=== PATIENT | female | born 1955 | race Caucasian/White ===

== ENCOUNTER 2020-06-10 10:18 | Inpatient (IN) | payer OTHER, MEDICARE, SELFPAY ==
[2020-06-10] VITALS (16 sets, daily range): BP systolic 108–136; BP diastolic 54–104; PULSE 80–106; RESP 14–20; TEMP 37.2; O2SAT 93–100; BMI 29.8
--- NOTE | ~2020-06-10 | CT_ITS ---
EXAMINATION: CT brain wo con DATE: 06/10/2020 13:57 INDICATION: Syncope. TECHNIQUE: Computed tomography (CT) of the head was performed without intravenous contrast. The mA wa s adjusted according to patient size. Iterative reconstruction technique was employed. The dose-lengt h product was 605.33 mGy-cm. COMPARISON: None FINDINGS: There is no intracranial hemorrhage, acute infarction, or abnormal intracranial mass lesion . The ventricles are normal in size. The orbits are normal. There is mucosal thickening in the parana jade sinuses. The mastoid air cells are normal. There is right frontal scalp soft tissue swelling. IMPRESSION: 1. Normal brain. Reviewed, dictated and finalized at location A. IMPRESSION: 1. Normal brain.
--- NOTE | ~2020-06-10 | CT_ITS ---
EXAMINATION: CT abdomen pelvis w con DATE: 06/10/2020 14:01 INDICATION: Generalized abdominal pain. TECHNIQUE: Computed tomography (CT) of the abdomen and pelvis was performed with 100 mL Omnipaque 350 intravenous contrast. Automated exposure control and iterative reconstruction technique were employe d. The dose-length product was 567.53 mGy-cm. COMPARISON: None. FINDINGS: The visualized portions of the lung bases are clear without pneumonia or pleural effusion. The heart size is normal. No pericardial effusion. There is a small sliding hiatal hernia. The liver is normal. There is cystic wall thickening of the gallbladder fundus, consistent with adenomyomatosis . The spleen is absent. The pancreas, adrenal glands, and right kidney are normal. There are cysts in left kidney measuring up to 8 mm. There is a 6 mm stone in left kidney. There is diverticulosis of t he colon without evidence of diverticulitis. There are no dilated loops of bowel. The appendix is not visualized. There are no pathologically enlarged lymph nodes. There is no free intraperitoneal fluid . There is mild thoracolumbar spondylosis. IMPRESSION: 1. Small sliding hiatal hernia. 2. Nonobstructing left kidney stone. Reviewed, dictated and finalized at location A.
--- NOTE | ~2020-06-10 | XR_ITS ---
EXAMINATION: XR abdomen NG/feed tube insert INDICATION: Nasogastric tube insertion TECHNIQUE: Portable AP KUB-NG at 0910 hours COMPARISON: None available FINDINGS: The nasogastric tube is in the stomach. The bowel gas pattern is normal. There are no dilat ed loops of bowel. The visualized lung bases are clear. IMPRESSION: 1. Nasogastric tube in the stomach. Reviewed, dictated and finalized at location A.
--- NOTE | ~2020-06-10 | XR_ITS ---
EXAMINATION: XR shoulder RT min 2V DATE: 06/10/2020 14:04 INDICATION: Right shoulder pain. TECHNIQUE: 4 views of right shoulder were obtained. COMPARISON: None. FINDINGS: Bone alignment is normal. No fracture. Glenohumeral joint is normal. There is moderate acro mioclavicular joint osteoarthritis. IMPRESSION: 1. Moderate right acromioclavicular joint osteoarthritis. Reviewed, dictated and finalized at location A.
--- NOTE | 2020-06-10 10:34 | ECG_ITS ---
Measurements Intervals Plato Rate: 92 P: 62 NC: 137 QRS: 29 QRSD: 88 T: 30 QT: 341 QTc: 423 Interpretive Statements SINUS RHYTHM BASELINE WANDER- AVF, V3, V6 NORMAL ECG Electronically Signed On 06-10-2020 15:25:09 CDT by Magdaleno Mcneill D.O.
--- NOTE | 2020-06-10 10:58 | ED.GENADULT ---
HPI - General Adult General Chief complaint: Syncope Stated complaint: syncope last night Time Seen by Provider: 06/10/20 10:51 Source: patient Limitations: no limitations History of Present Illness HPI narrative: Patient is a 65 y/o female complaining of passing out earlier this morning between 2:00 AM and 4:00 AM. She states that she woke up to go to the bathroom. While on the commode, she felt dizzy, passed out. She subsequent woke up on the ground. She has some right shoulder pain. She states that she had diarrhea and stool appeared black. She went to golf this morning and felt dizzy, but she did not pass out. She had some vomiting and mild abdominal pain this morning. Related Data Home Medications Medication Instructions Recorded Confirmed amlodipine 5 mg PO DAILY 06/10/20 ergocalciferol (vitamin D2) 50,000 unit PO WEEKLY 06/10/20 omeprazole 20 mg PO DAILY 06/10/20 Allergies Allergy/AdvReac Type Severity Reaction Status Date / Time No Known Allergies Allergy Unverified 06/10/20 10:28 Review of Systems Constitutional: Constitutional: Reports as per HPI, Denies chills, Denies fever(s), Denies headache(s) and Reports weakness Eyes: Eyes: Denies blurry vision ENT: Denies headache(s) and Denies neck pain Cardiovascular: Cardiovascular: Denies chest pain and Denies dyspnea Respiratory: Respiratory: Denies cough and Denies dyspnea Gastrointestinal: Gastrointestinal: Reports abdominal pain, Reports diarrhea, Reports nausea and Reports vomiting Genitourinary: Genitourinary: Denies hematuria and Denies dysuria Musculoskeletal: Musculoskeletal: Denies back pain, Reports arthralgias (right shoulder pain) and Denies neck pain Neurologic: Reports as per HPI, Reports dizziness, Denies headache(s) and Denies weakness [facility] Social History Social History Gender identity (if verbalized by the patient): Female Exam Const: General: no acute distress and well developed Orientation/consciousness: oriented to person, oriented to place, oriented to time and patient oriented x3 HENMT: Head: normocephalic Ears: external ears normal General nose exam: Normal external nose present Eyes: General: appearance normal, both eyes and all related structures Conjunctivae: conjunctivae normal Neck: Neck: normal visual inspection and full ROM Chest: Chest palpation & inspection: normal inspection of the chest and no tenderness Resp: Effort & Inspection: normal respiratory effort Auscultation: clear to auscultation bilaterally Cardio: Rate: regular rate Rhythm: regular rhythm GI: GI Palp: No abdominal tenderness and Yes Soft to palpation Skin: General skin exam: normal color and turgor normal Neuro: General: oriented to person, oriented to place, oriented to time and patient oriented x3 Cognition (Neuro): normal cognition Extrem: General: normal to inspection, full ROM and no pedal edema Psych: Appearance: grossly normal Mental Status: mental status grossly normal Affect: normal affect Course Consultations Consultation #1: Discussed with LEAH Tanner, who agrees to admit to Dr. Reyes. She also recommends GI consult. Date: 06/10/20 Time: 15:05 Consultation #2: Discussed with Dr. Laws, who agrees to consult. Date: 06/10/20 Time: 15:08 Vital Signs Vital signs: Vital Signs Temperature 37.2 C 06/10/20 10:23 Pulse Rate 89 06/10/20 10:23 Respiratory Rate 20 06/10/20 10:23 Blood Pressure 125/75 06/10/20 10:23 Pulse Oximetry 99 06/10/20 10:23 Temperature 37.2 C 06/10/20 10:23 Pulse Rate 82 06/10/20 15:35 Respiratory Rate 20 06/10/20 15:35 Blood Pressure 129/73 06/10/20 15:35 Pulse Oximetry 98 06/10/20 15:35 Medical Decision Making Vital Signs Vital Signs: Vital Signs Temperature 37.2 C 06/10/20 10:23 Pulse Rate 89 06/10/20 10:23 Respiratory Rate 06/10/20 10:23 Blood Pressure 125/75 06/10/20 10:
[2020-06-10] MEDS: SODIUM CHLORIDE 0.9% IV 1,000 ML 999 ML IV CONT (11:05)
[2020-06-10 11:09] LABS: Basophils Absolute Auto 0.1 K/mm3 (0.0-0.1); Basophils Percent Auto 0.7 % (0.2-1.2); Eosinophils Percent Auto 0.2 % (0-4.4); Hematocrit 34.1 % (37.0-47.0); Hemoglobin 11.9 g/dL (12.0-15.0); Immature Granulocyte Absolute 0.06 K/mm3 (0.00-0.031); Immature Granulocyte Percent A 0.5 % (0-0.5); Lymphocytes Absolute Auto 1.39 K/mm3 (0.9-3.2); Mean Corpuscular HGB Conc 34.9 g/dl (32-36); Mean Corpuscular Hemoglobin 33.6 pg (26-34); Mean Corpuscular Volume 96.3 fl (80-100); Mean Platelet Volume 11.6 fl (7.4-10.4); Monocytes Absolute Auto 0.5 K/mm3 (0.1-0.6); Monocytes Percent Auto 4.1 % (2.6-8.5); Neutrophils Absolute Auto 10.6 K/mm3 (1.3-6.7); Neutrophils Percent Auto 83.5 % (45.5-73.1); Platelet Count Result 318 k/mm3 (150-375); Red Blood Count 3.54 M/mm3 (4.2-5.4); Red Cell Distribution Width 11.6 % (11.5-14.5); White Blood Count 12.7 K/mm3 (4.5-10.0)
[2020-06-10 11:22] LABS: Anion Gap 8 mmol/L (8-16); Blood Urea Nitrogen 24 mg/dL (7-17); Calcium 9.2 mg/dL (8.4-10.2); Carbon Dioxide 22 mmol/L (22-30); Chloride 108 mmol/L (98-107); Estimated CRCL calculation 57 ml/min; Estimated Glomerular Filt Rate > 60; Glucose 141 mg/dL (65-105); Potassium 4.5 mmol/L (3.4-5.0); Sodium 138 mmol/L (137-145)
[2020-06-10 14:28] LABS: Hematocrit 29.9 % (37.0-47.0); Hemoglobin 10.5 g/dL (12.0-15.0)
[2020-06-10] MEDS: SODIUM CHLORIDE 0.9% IV 1,000 ML 125 ML IV CONT (18:28)
--- NOTE | 2020-06-10 18:42 | ADMGEN ---
This patient, Melissa Ambriz, was admitted to Medical Room 252-. Patient/family oriented to hospital policies and general routines including ID bracelet, bed and alarms, visiting hours, pain management, procedures, bathroom and other care routines, personal items, smoking policy, room service/diet, and visiting hours. Valuables list has been completed. Information on how to activate the Rapid Response Team has been discussed. Patient/Family are encouraged to report perceived risks to care and to ask questions if they do not understand what they are told or what they should do.
--- NOTE | 2020-06-10 23:23 | PM.IMHP ---
H&P: HPI History of Present Illness Date/Time: 06/10/20 23:23 Chief complaint: syncope/gi bleed Narrative: Melissa Ambriz is a 65 year old female Who has a history of hypertension. The patient recently started taking an aspirin probably last week and half ago. She said her take 1 and she just decided she needed take 1 as well. She has a history of having a spleen ectomy which was 5 years old. due to spherocytosis. The patient has had esophageal strictures in the past and had to have some dilated the past. She has seen a doctor rachel at [place] in the past. She is a nondrinker. She may have a drink once a month but does not usually drink. The patient stated that she passed out early this morning between 2 and 4:00 a.m.. She stated that she woke up to go to the bathroom. She sat on the commode felt dizzy and passed out found herself on the floor. When she got up felt like she had have a diarrhea stool. So she got up and sat on the toilet had a dark stool. She only just started taking the aspirin is not on any and other anticoagulation. She went to go off this morning and felt dizzy but did pass out. When I came into the room she is vomiting bright red blood and had a dark stool. She does have a history of having gastroesophageal reflux disease and has been taking omeprazole. She also has osteoporosis. She takes shot Prolia every 6 months. And is due for an in about 2 weeks. She typically has high blood pressure but it was low today. GI on-call was consulted. She was started on IV fluids. Her 1st H&H was 11.9 and 34.1 and the repeat was 10.5 and 29.9. I did order for her to have a Protonix drip and to have a Q 6 hours H&H. I ordered type and screen as well. I spent approximately 45 minutes with the patient. CT of the abdomen was read as small sliding hiatal hernia. Nonobstructing left kidney stone. Date of service is 06/10/2020 she is pale but denies any dizziness at this time she just feels nauseated. Review of Systems Review of Systems: All systems reviewed & are unremarkable except as noted in HPI and below Constitutional: Constitutional: Reports as per HPI and Reports no additional constitutional complaints Eyes: Eyes: Reports as per HPI and Reports no additional eye complaints ENT: Reports system reviewed and no additional complaints, except as documented and Reports Normal hearing present Cardiovascular: Cardiovascular: Reports no additional cardiovascular complaints Respiratory: Respiratory: Reports no additional respiratory complaints and Reports no additional respiratory complaints Gastrointestinal: Gastrointestinal: Reports as per HPI and Reports no additional gastrointestinal complaints Musculoskeletal: Musculoskeletal: Reports no additional musculoskeletal complaints Integumentary/Breasts: Skin/Breast: Reports system reviewed and no additional complaints, except as docu and Reports as per HPI Neurologic: Reports system reviewed and no additional complaints, except as documented, Reports as per HPI and Reports Normal hearing present Psychiatric: Psychiatric: Reports no additional psychiatric complaints and Reports as per HPI Endocrine: Endocrine: Reports no additional endocrine complaints Hematologic/Lymphatic: Hematologic/Lymphatic: Reports no additional hematologic/lymphatic complaints Allergic/Immunologic: Allergic/Immunologic: Reports no additional allergic/immunologic complaints [facility] Past Medical History Medical History (Updated 06/10/20 @ 23:31 by Flores Fischer NP) Esophageal stricture GERD with stricture History of esophageal dilatation Hypertension Osteoporosis 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
[2020-06-11] VITALS (27 sets, daily range): BP systolic 101–123; BP diastolic 52–81; PULSE 65–106; RESP 13–24; TEMP 36.3–37.2; O2SAT 97–100
[2020-06-11 00:07] LABS: Hematocrit 23.2 % (37.0-47.0)
[2020-06-11 02:07] LABS: IFOB Positive Control Positive; Immunochemical Fecal Occult Bl Positive (N)
[2020-06-11] MEDS: SODIUM CHLORIDE 0.9% IV 250 ML 30 ML IV CONT (02:09)
[2020-06-11] MEDS: SODIUM CHLORIDE 0.9% IV 1,000 ML 125 ML IV CONT (02:22)
[2020-06-11 06:30] LABS: Hemoglobin 7.4 g/dL (12.0-15.0)
--- NOTE | 2020-06-11 06:43 | PM.EVENT ---
Event Note Event Note Event Note: Rapid Response Note This is a 65 year old female who is being treated for an upper GI bleed who had a drop in her blood pressure and began to have bright red vomiting. The patient was transfused 1 unit of PRBC overnight and her H/H actually dropped afterwards. Nursing staff has called GI who has recommended that the patient be transferred to ICU and NG tube be placed. We will transfer another unit of pRBCs. I have consulted our Viscosity Worker, Dr. Valentine for same. Continue GI recommendations.
[2020-06-11 06:46] LABS: Alanine Aminotransferase 11 U/L (4-35); Albumin Level 2.3 g/dL (3.5-5.1); Alkaline Phosphatase 39 U/L (38-126); Anion Gap 1 mmol/L (8-16); Aspartate Amino Transferase 13 U/L (14-36); Bilirubin,Total 0.4 mg/dL (0.2-1.3); Blood Urea Nitrogen 44 mg/dL (7-17); Calcium 7.1 mg/dL (8.4-10.2); Carbon Dioxide 23 mmol/L (22-30); Chloride 114 mmol/L (98-107); Estimated CRCL calculation 69 ml/min; Estimated Glomerular Filt Rate > 60; Glucose 125 mg/dL (65-105); Potassium 3.9 mmol/L (3.4-5.0); Sodium 138 mmol/L (137-145)
--- NOTE | 2020-06-11 07:07 | PCDIET ---
Pt had 3 episodes of blood emesis. 2 of the episodes were this morning, 06/11, at approximately 0600. Approx 700ml of bloody emesis. Dr. Jase Anderson was called twice to update him of her condition and get further orders. The provider wanted pt trasferred to ICU, NG tube inserted and more blood to be administered. Pt became pale and her O2 sats dropped in the 80s. A rapid response call was made and Dr Salinsa came to the floor to assess the pt and place orders. Pt was transferred to ICU Rm 8. Her Omer was called and made aware of the pt's condition
--- NOTE | 2020-06-11 07:32 | PC.NURSE ---
Rapid response called at 0630. Dr Salinas and the response team came to the room. Report was given to MAURICIO Chappell. Pt was transferred to ICU 8. Belongings and medications were sent. A copy of the sbar and report were given to MAURICIO Narayanan. Pt's was called.
--- NOTE | 2020-06-11 07:57 | WPDGICN ---
Assessment and Plan Assessment and plan (1) GI bleed: Qualifiers: GI bleed type/associated pathology: melena Qualified Code(s): K92.1 - Melena Code(s): K92.2 - Gastrointestinal hemorrhage, unspecified Status: Acute Assessment and Plan: patient was moved to ICU given active hematemesis, getting blood transfusion NPO status, on iv protonix drip will proceed with urgent EGD probably ulcer, esophagitis (h/o stricture), etc (2) Melena: Code(s): K92.1 - Melena Status: Acute Assessment and Plan: upper gib, EGD today discontinue aspirin (3) Acute blood loss anemia: Code(s): D62 - Acute posthemorrhagic anemia Status: Acute Assessment and Plan: she is getting her second unit now, continue to monitor and check h/h (4) Syncope: Qualifiers: Syncope type: unspecified Qualified Code(s): R55 - Syncope and collapse Code(s): R55 - Syncope and collapse Status: Acute Assessment and Plan: from GIB (5) GERD with stricture: Code(s): K21.9 - Gastro-esophageal reflux disease without esophagitis; K22.2 - Esophageal obstruction Status: Acute GI Consult Note Consult date/time: 06/11/20 07:57 Reason for consult: hematemesis, melena HPI: Melissa Ambriz is a 65 year old female with history of splenectomy as a child because spherocytosis, HTN and esophageal stricture dilated x2 last year in [facility] on omeprazole (also she had colonoscopy) here with new onset of dark tarry stool with diarrhea the night before admission, in fact she passed out after using the toilet that night. Next day she went golf but fell dizzy and tired, had nausea and vomiting with dark loose stool and came to ER, admitted to floor yesterday but then started vomiting coffee ground with blood. This morning she was transferred to ICU, she is getting her second unit of PRBC. She started using aspirin about week and half ago, denies using nsaid's or history of GIB. No etoh use. Denies dysphagia. CT scan showed small hiatal hernia. Started on protonix drip and NGT placed. Hb on admission 11.9, most recent one 7.4, BUN 44, normal platelets Review of Systems Constitutional: Constitutional: Reports fatigue, Denies headache(s) and Reports weakness Eyes: Eyes: Denies blurry vision ENT: Reports Normal hearing present, Denies headache(s) and Denies neck pain Cardiovascular: Cardiovascular: Denies chest pain and Denies dyspnea Respiratory: Respiratory: Reports dyspnea on exertion Gastrointestinal: Gastrointestinal: Reports melena, Reports nausea, Reports vomiting and Reports hematemesis Genitourinary: Genitourinary: Denies dysuria Musculoskeletal: Musculoskeletal: Denies neck pain Integumentary/Breasts: Skin/Breast: Denies dry skin Neurologic: Reports Normal hearing present, Reports dizziness and Reports syncope Psychiatric: Psychiatric: Denies anxiety Endocrine: Endocrine: Denies change in body appearance Hematologic/Lymphatic: Hematologic/Lymphatic: Denies easy bleeding Allergic/Immunologic: Allergic/Immunologic: Denies urticaria PMFSH Past Medical History Medical History (Updated 06/11/20 @ 08:06 by Umang Dominguez MD) Acute blood loss anemia Esophageal stricture GERD with stricture History of esophageal dilatation Hypertension Melena Osteoporosis 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
--- NOTE | 2020-06-11 08:08 | WPDANESEPPF ---
Anes - Initial Pre Proc Eval Procedure: Operation Date: 06/11/20 12:00 Proposed Procedures p Esophagogastroduodenoscopy - Umang Dominguez MD Date/Time: 06/11/20 08:08 Surgeon: Kristal Reyes MD Pre Op Diagnosis: syncope/gi bleed Patient Data Age: 65 Gender: F Height: 1.63 m Weight: 78.8 kg Last Vital Signs Temp 37.1 C 06/11/20 07:19 Pulse 102 H 06/11/20 07:39 Resp 22 H 06/11/20 07:39 BP 104/81 06/11/20 07:39 Pulse Ox 100 06/11/20 07:39 Allergies Allergy/AdvReac Type Severity Reaction Status Date / Time No Known Allergies Allergy Verified 06/10/20 18:31 Home Medications Medication Instructions Recorded Confirmed Type amlodipine 5 mg PO DAILY 06/10/20 06/10/20 History calcium carbonate [Antacid 750 mg PO Q2-3H PRN 06/10/20 06/10/20 History (calcium carbonate)] denosumab [Prolia] 60 mg SUBCUT [id number] 06/10/20 06/10/20 History ergocalciferol (vitamin D2) 50,000 unit PO WEEKLY 06/10/20 06/10/20 History melatonin 10 mg PO HS 06/10/20 06/10/20 History Laboratory Tests 06/10/20 06/10/20 06/10/20 10:38 10:38 14:13 WBC 12.7 K/mm3 H K/mm3 (4.5-10.0) RBC 3.54 M/mm3 L M/mm3 (4.2-5.4) Hgb 11.9 g/dL L g/dL 10.5 g/dL L g/dL (12.0-15.0) (12.0-15.0) Hct 34.1 % L % 29.9 % L % (37.0-47.0) (37.0-47.0) MCV 96.3 fl fl (80-100) MCH 33.6 pg pg (26-34) MCHC 34.9 g/dl g/dl (32-36) RDW 11.6 % % (11.5-14.5) Plt Count 318 k/mm3 k/mm3 (150-375) MPV 11.6 fl H fl (7.4-10.4) Immature Gran % (Auto) 0.5 % % (0-0.5) Neut % (Auto) 83.5 % H % (45.5-73.1) Lymph % (Auto) 11.0 % L % (18.3-44.2) Bonner % (Auto) 4.1 % % (2.6-8.5) Eos % (Auto) 0.2 % % (0-4.4) Baso % (Auto) 0.7 % % (0.2-1.2) Lymph # (Auto) 1.39 K/mm3 K/mm3 (0.9-3.2) Bonner # (Auto) 0.5 K/mm3 K/mm3 (0.1-0.6) Eos # (Auto) 0.0 K/mm3 K/mm3 (0-0.3) Baso # (Auto) 0.1 K/mm3 K/mm3 (0.0-0.1) Abs Immat Gran (auto) 0.06 K/mm3 H K/mm3 (0.00-0.031) Absolute Neuts (auto) 10.6 K/mm3 H K/mm3 (1.3-6.7) Absolute Nucleated RBC 0.0 K/mm3 K/mm3 (0.0-0.012) Nucleated RBC % 0.0 % % (0.0-0.2) Sodium 138 mmol/L mmol/L (137-145) Potassium 4.5 mmol/L mmol/L (3.4-5.0) Chloride 108 mmol/L H mmol/L (98-107) Carbon Dioxide 22 mmol/L mmol/L (22-30) Anion Gap 8 mmol/L mmol/L (8-16) BUN 24 mg/dL H mg/dL (7-17) Creatinine 0.80 mg/dL mg/dL (0.7-1.0) Estim Creat Clear Calc 57 ml/min ml/min Estimated GFR > 60 (59 - ) Glucose 141 mg/dL H mg/dL (65-105) Calcium 9.2 mg/dL mg/dL (8.4-10.2) Ferritin Total Bilirubin AST ALT Alkaline Phosphatase Total Protein Albumin TSH (Reflex) Stl Occult Blood (IFOB) Blood Type Antibody Screen Crossmatch 08/16/20 08/16/20 08/16/20 23:21 23:38 23:38 WBC RBC Hgb 8.0 g/dL L g/dL (12.0-15.0) Hct 23.2 % L % (37.0-47.0) MCV MCH MCHC RDW Plt Count MPV Immature Gran % (Auto) Neut % (Auto) Lymph % (Auto) Bonner % (Auto) Eos % (Auto) Baso % (Auto) Lymph # (Auto) Bonner # (Auto) Eos # (Auto) Baso # (Auto) Abs Immat Gran (auto) Absolute Neuts (auto) Absolute Nucleated RBC Nucleated RBC % Sodium Potassium Chloride Carbon Dioxide Anion Gap BUN
--- NOTE | 2020-06-11 09:00 | WPDCNINT ---
Assessment and Plan Assessment and plan (1) GI bleed: Qualifiers: GI bleed type/associated pathology: melena Qualified Code(s): K92.1 - Melena Code(s): K92.2 - Gastrointestinal hemorrhage, unspecified Status: Acute Assessment and Plan: patient presented the ED with melena, syncope - dropped hemoglobin overnight, with active hematemesis. Patient was transfuse 1 unit of packed RBCs last night, this morning her hemoglobin dropped to 7.4 and is being transfused as a right this note. Patient will receive a total of 2 units of packed RBCs this morning ( which will be a total of 3 units of packed RBCs since admission) - patient on Protonix infusion - has been made NPO - appreciate GI evaluation, patient for urgent EGD today (2) Acute blood loss anemia: Code(s): D62 - Acute posthemorrhagic anemia Status: Acute Assessment and Plan: acute anemia likely secondary to post hemorrhagic GI bleed - continue to monitor H&H transfuse as required (3) Syncope: Qualifiers: Syncope type: unspecified Qualified Code(s): R55 - Syncope and collapse Code(s): R55 - Syncope and collapse Status: Acute Assessment and Plan: syncope likely related to GI bleed secondary to possible hypotension, hypovolemia - patient has been adequately fluid-resuscitated and has been receiving blood transfusions - will continue to monitor hemodynamics (4) Hypertension: Code(s): I10 - Essential (primary) hypertension Status: Chronic Assessment and Plan: patient with history of essential hypertension, will hold all antihypertensives (5) GERD with stricture: Code(s): K21.9 - Gastro-esophageal reflux disease without esophagitis; K22.2 - Esophageal obstruction Status: Acute Assessment and Plan: history of GERD with esophageal stricture, dilation x2 done at [place] in 2019 - GI following (6) DVT prophylaxis: Code(s): Z29.9 - Encounter for prophylactic measures, unspecified Status: Acute Assessment and Plan: SCDs Additional Plan discussed with patient and updated her with her condition and plan of care. I answered all questions code status: Full code critical care time spent: 44 minutes discussed with GI Due to a high probability of clinically significant, life threatening deterioration, the patient required my highest level of preparedness to intervene emergently and I personally spent this critical care time directly and personally managing the patient. This critical care time included obtaining a history; examining the patient; pulse oximetry; ordering and review of studies; arranging urgent treatment with development of a management plan; evaluation of patient's response to treatment; frequent reassessment; and discussions with other providers. It was exclusive of separately billable procedures and treating other patients and teaching time. Please see Assessment and Plan section and the rest of the note for further information on patient assessment and treatment Contestant Coordinator Consult Note Consult date: 06/11/20 Time Seen: 06:57 Reason for consult: GI bleed, anemia HPI: Melissa Ambriz is a 65 year old female with significant past medical history of esophageal stricture requiring dilatation x2 done in 2019 [place], [place], GERD, essential hypertension, spherocytosis status post splenectomy at age of 4, osteoporosis presented the ED with complains of melena, syncopal episode on 06/10/2020. Dizzy, tired, had nausea and vomiting along with doubt loose stool. Initially was admitted to the medical floor where she started having coffee-ground emesis and hematemesis and was transferred to the ICU early this morning. Patient also dropped her hemoglobin from 11.9 on admission to 7.4 this morning, patient has been transfused 1 unit of packed RBCs on 816 lb transfuse 2 units of packed RBC here in the ICU. GI has eval
[2020-06-11] MEDS: LACTATED RINGERS 1,000 ML 150 ML IV CONT (11:56)
--- NOTE | 2020-06-11 11:57 | SUR.PREOP ---
PT ARRIVED TO GI LAB VIA STRETCHER SPOUSE AT BEDSIDE, PROCEEDED WITH ORDERS
[2020-06-11] MEDS: EPINEPHrine INJ 1 MG/10 ML SYRINGE XX (12:47)
--- NOTE | 2020-06-11 14:20 | PM.IMPN ---
Progress Note: A&P Assessment and Plan (1) GI bleed: Qualifiers: GI bleed type/associated pathology: melena Qualified Code(s): K92.1 - Melena Code(s): K92.2 - Gastrointestinal hemorrhage, unspecified Status: Acute Assessment and Plan: as above EGD revealed gastric fundus ulcer with spontaneous bleeding vessel on probing treated with appy injection, cautery, and clipping. hemoglobin 7.4 this a.m. before 3rd unit of blood given (2) Syncope: Qualifiers: Syncope type: unspecified Qualified Code(s): R55 - Syncope and collapse Code(s): R55 - Syncope and collapse Status: Acute Assessment and Plan: secondary to drop in blood pressure and her GI bleed. continue to monitor (3) Hypertension: Code(s): I10 - Essential (primary) hypertension Status: Chronic Assessment and Plan: blood pressure low due to bleeding and amlodipine on hold. (4) Osteoporosis: Code(s): M81.0 - Age-related osteoporosis without current pathological fracture Status: Chronic Assessment and Plan: She takes Prolia injections every 6 months and is due for approximately 2 weeks from now. (5) Acute blood loss anemia: Code(s): D62 - Acute posthemorrhagic anemia Status: Acute Assessment and Plan: secondary to bleeding ulcer. Has received 3 units of packed cells to date and repeat hemoglobin pending (6) DVT prophylaxis: Code(s): Z29.9 - Encounter for prophylactic measures, unspecified Status: Acute Assessment and Plan: mechanical with GI bleeding Subjective Date/time seen: 06/11/20 14:20 Interval history: date of visit 06/11. 65-year-old hypertensive female admitted after syncopal episode, melanotic stool, and hematemesis. EGD this a.m. revealed ulcer in gastric fundus with visible vessel that blood wound probed and was treated with epi injection, cauterization, and clipping. No abdominal pain or nausea Exam Narrative: Exam Narrative: blood pressure 110/72 pulse is 82 saturating 97% on room air afebrile pupils equal reactive to light sclera anicteric lungs clear CV regular rate rhythm abdomen soft nontender bowel sounds normal active extremities without edema distal pulses are 2+ neuro alert pleasant cooperative no focal deficits Objective Data Vital Signs Vital Signs: Vital Signs - 24 hr 06/10/20 15:35 06/10/20 17:35 06/10/20 17:53 Temperature 37.2 C Pulse Rate 82 100 89 Respiratory Rate 20 16 Blood Pressure 129/73 136/77 Pulse Oximetry 98 99 06/10/20 20:00 06/10/20 22:00 06/10/20 23:10 Temperature 37.2 C Pulse Rate 92 98 93 Respiratory Rate 16 14 Blood Pressure 114/54 L 108/71 Pulse Oximetry 98 97 06/11/20 00:00 06/11/20 02:14 06/11/20 02:15 Temperature 36.6 C 36.6 C Pulse Rate 98 104 H 104 H Respiratory Rate 16 16 Blood Pressure 121/54 L 121/54 L Pulse Oximetry 98 98 06/11/20 02:30 06/11/20 03:30 06/11/20 04:00 Temperature 36.7 C 37.1 C Pulse Rate 99 99 93 Respiratory Rate 16 16 Blood Pressure 118/58 L 112/63 Pulse Oximetry 98 97 06/11/20 04:30 06/11/20 05:27 06/11/20 07:01 Temperature 36.3 C L 37.1 C 36.9 C Pulse Rate 106 H 99 100 Respiratory Rate 16 16 14 Blood Pressure 109/61 112/63 111/65 Pulse Oximetry 98 97 99 06/11/20 07:19 06/11/20 07:39 06/11/20 08:00 Temperature 37.1 C Pulse Rate 92 102 H 100 Respiratory Rate 22 H 22 H 21 H Blood Pressure 107/62 104/81 Pulse Oximetry 100 100 100 06/11/20 08:19 06/11/20 09:19 06/11/20 10:44 Temperature 37.2 C 37.1 C 37.2 C Pulse Rate 65 99 95 Respiratory Rate 21 H 19 16 Blood Pressure 113/66 105/61 113/64 Pulse Oximetry 100 100 100 06/11/20 10:54 06/11/20 11:11 06/11/20 11:45 Temperature 37.2 C 37.2 C 36.9 C Pulse Rate 90 95 97 Respiratory Rate 13 20 20 Blood Pressure 121/71 117/69 115/71 Pulse Oximetry 100 100 100 06/11/20 11:56 06/11/20 12:49 06/11/20 12:59 [place]
[2020-06-11 14:44] LABS: Hemoglobin 10.7 g/dL (12.0-15.0)
[2020-06-11 21:06] LABS: Hematocrit 25.5 % (37.0-47.0)
[2020-06-12] VITALS (11 sets, daily range): BP systolic 104–117; BP diastolic 49–71; PULSE 81–99; RESP 16–24; TEMP 36.6–37.2; O2SAT 97–99
[2020-06-12 04:44] LABS: Basophils Absolute Auto 0.1 K/mm3 (0.0-0.1); Basophils Percent Auto 0.6 % (0.2-1.2); Eosinophils Absolute Auto 0.1 K/mm3 (0-0.3); Eosinophils Percent Auto 0.7 % (0-4.4); Hematocrit 27.4 % (37.0-47.0); Hemoglobin 9.5 g/dL (12.0-15.0); Immature Granulocyte Absolute 0.08 K/mm3 (0.00-0.031); Immature Granulocyte Percent A 0.5 % (0-0.5); Lymphocytes Absolute Auto 3.22 K/mm3 (0.9-3.2); Lymphocytes Percent Auto 20.3 % (18.3-44.2); Mean Corpuscular HGB Conc 34.7 g/dl (32-36); Mean Corpuscular Hemoglobin 31.5 pg (26-34); Mean Corpuscular Volume 90.7 fl (80-100); Mean Platelet Volume 10.9 fl (7.4-10.4); Monocytes Absolute Auto 1.1 K/mm3 (0.1-0.6); Monocytes Percent Auto 6.7 % (2.6-8.5); Neutrophils Absolute Auto 11.3 K/mm3 (1.3-6.7); Neutrophils Percent Auto 71.2 % (45.5-73.1); Platelet Count Result 191 k/mm3 (150-375); Red Blood Count 3.02 M/mm3 (4.2-5.4); White Blood Count 15.9 K/mm3 (4.5-10.0)
[2020-06-12 05:35] LABS: Anion Gap 4 mmol/L (8-16); Blood Urea Nitrogen 15 mg/dL (7-17); Carbon Dioxide 25 mmol/L (22-30); Chloride 109 mmol/L (98-107); Estimated CRCL calculation 61 ml/min; Estimated Glomerular Filt Rate > 60; Glucose 107 mg/dL (65-105); Magnesium 1.9 mg/dL (1.6-2.3); Phosphorus 2.8 mg/dL (2.5-4.5); Potassium 3.6 mmol/L (3.4-5.0); Sodium 138 mmol/L (137-145)
--- NOTE | 2020-06-12 07:48 | P.PNAN_ITS ---
Anes - Prog Note Post-Op Date/Time: 06/12/20 07:48 Cardiovascular status: normal Respiratory status: normal Airway patency: baseline Mental status: baseline Post-Op hydration status: normal Vital Signs: Last Vital Signs Temp 36.6 C 06/12/20 06:00 Pulse 84 06/12/20 06:00 Resp 17 06/12/20 06:00 BP 104/50 L 06/12/20 06:00 Pulse Ox 99 06/12/20 06:00 I/O: Intake & Output 06/11/20 06/11/20 06/12/20 15:59 23:59 07:59 Intake Total 2200 990 550 Output Total 600 1000 Balance 2200 390 -450 Laboratory Tests 06/12/20 04:32 06/12/20 04:32 06/10/20 06/11/20 06/11/20 23:38 06:18 14:15 WBC RBC Hgb 10.7 L D Hct 31.0 L MCV MCH MCHC RDW Plt Count MPV Immature Gran % (Auto) Neut % (Auto) Lymph % (Auto) Ransom % (Auto) Eos % (Auto) Baso % (Auto) Lymph # (Auto) Ransom # (Auto) Eos # (Auto) Baso # (Auto) Abs Immat Gran (auto) Absolute Neuts (auto) Absolute Nucleated RBC Nucleated RBC % Sodium Potassium Chloride Carbon Dioxide Anion Gap BUN Creatinine Estim Creat Clear Calc Estimated GFR Glucose Calcium Phosphorus Magnesium Ferritin 126.00 Blood Type O Positive Antibody Screen Negative Crossmatch See Detail 06/11/20 06/12/20 06/12/20 20:21 04:32 04:32 WBC 15.9 H RBC 3.02 L Hgb 9.0 L 9.5 L Hct 25.5 L 27.4 L MCV 90.7 D MCH 31.5 D MCHC 34.7 RDW 15.0 H Plt Count 191 MPV 10.9 H Immature Gran % (Auto) 0.5 Neut % (Auto) 71.2 Lymph % (Auto) 20.3 Ransom % (Auto) 6.7 Eos % (Auto) 0.7 Baso % (Auto) 0.6 Lymph # (Auto) 3.22 H Ransom # (Auto) 1.1 H Eos # (Auto) 0.1 Baso # (Auto) 0.1 Abs Immat Gran (auto) 0.08 H Absolute Neuts (auto) 11.3 H Absolute Nucleated RBC 0.0 Nucleated RBC % 0.0 Sodium 138 Potassium 3.6 Chloride 109 H Carbon Dioxide 25 Anion Gap 4 L BUN 15 D Creatinine 0.80 Estim Creat Clear Calc 61 Estimated GFR > 60 Glucose 107 H Calcium 8.0 L Phosphorus 2.8 Magnesium 1.9 Ferritin Blood Type Antibody Screen Crossmatch Post-procedural complaints: none Patient Feedback: Patient satisfied with anesthetic care.
--- NOTE | 2020-06-12 09:59 | WPDGIPROGNO ---
Progress Note: A&P Assessment and Plan (1) Gastric ulcer: Code(s): K25.9 - Gastric ulcer, unspecified as acute or chronic, without hemorrhage or perforation Status: Acute Assessment and Plan: active bleeding gastric ulcer with visible vessel treated endoscopically yesterday. Hb stable after blood transfusion and she is doing much better ok to switch now to protonix bid pending bx (if h pylori then will need treatment) she will need also EGD in 3 months to reassess again (2) Melena: Code(s): K92.1 - Melena Status: Acute Assessment and Plan: no more bleeding (3) Acute blood loss anemia: Code(s): D62 - Acute posthemorrhagic anemia Status: Acute (4) Syncope: Qualifiers: Syncope type: unspecified Qualified Code(s): R55 - Syncope and collapse Code(s): R55 - Syncope and collapse Status: Acute Assessment and Plan: on presentation, she is hemodynamically stable now ok to move to floor Subjective Date/time seen: 06/12/20 09:59 Interval history: no more nausea or vomiting, she is feeling much better now. Review of Systems Review of Systems: All systems reviewed & are unremarkable except as noted in HPI and below Exam Const: General: comfortable and no acute distress Other: she is resting comfortable, good spirits HENMT: General nose exam: Normal nares present Eyes: General: appearance normal, both eyes and all related structures Neck: Neck: no JVD Resp: Auscultation: clear to auscultation bilaterally Cardio: Rate: regular rate Rhythm: regular rhythm GI: Inspection: non-distended GI Palp: Yes Soft to palpation Skin: General skin exam: normal color Neuro: General: gait normal Speech: normal speech Extrem: General: normal to inspection Psych: Mental Status: mental status grossly normal Objective Data Vital Signs Vital Signs: Vital Signs - 24 hr 06/11/20 10:44 06/11/20 10:54 06/11/20 11:11 Temperature 99.0 F 99.0 F 98.9 F Pulse Rate 95 90 95 Respiratory Rate 16 13 20 Blood Pressure 113/64 121/71 117/69 Pulse Oximetry 100 100 100 06/11/20 11:45 06/11/20 11:56 06/11/20 12:49 Temperature 98.4 F 98.4 F 98.6 F Pulse Rate 97 97 99 Respiratory Rate 20 20 23 H Blood Pressure 115/71 115/71 116/52 L Pulse Oximetry 100 100 100 06/11/20 12:59 06/11/20 13:09 06/11/20 14:00 Temperature 98.6 F 98.9 F Pulse Rate 85 86 83 Respiratory Rate 24 H 19 23 H Blood Pressure 123/59 L 105/69 111/72 Pulse Oximetry 98 100 97 06/11/20 16:00 06/11/20 19:49 06/11/20 19:51 Temperature 98.8 F Pulse Rate 95 97 97 Respiratory Rate 18 18 Blood Pressure 122/61 Pulse Oximetry 99 99 06/11/20 20:00 06/12/20 00:00 06/12/20 04:00 Temperature 97.8 F 97.8 F 98.1 F Pulse Rate 97 99 87 Respiratory Rate 16 16 18 Blood Pressure 117/54 L 117/54 L 110/49 L Pulse Oximetry 97 99 99 06/12/20 06:00 06/12/20 08:00 Temperature 97.9 F 98.1 F Pulse Rate 84 82 Respiratory Rate 17 16 Blood Pressure 104/50 L 110/54 L Pulse Oximetry 99 99 Intake/Output Intake/Output: Intake & Output 06/09/20 06/10/20 06/11/20 06/12/20 23:59 23:59 23:59 23:59 Intake Total 1000 4907 1350 Output Total 150 1800 1000 Balance 850 3107 350 Meds/Results Medications: Active Medications Generic Name Dose Route Start Last Admin Trade Name Freq PRN Reason Stop Dose Admin Pantoprazole Sodium 80 mg/ 500 mls @ 50 mls/hr 06/10/20 23:20 06/11/20 22:53 Dextrose IV CONT 50 mls/hr .Q10H CHRISTIANO Administration Radiology Results: ITS Impressions Head CT 06/10/20 14:00 IMPRESSION: 1. Normal brain. Shoulder X-Ray 06/10/20 14:07 IMPRESSION: 1. Moderate right acromioclavicular joint osteoarthritis. Abdomen/Pelvis CT 06/10/20 14:08 IMPRESSION: 1. Small sliding hiatal hernia. 2. Nonobstructing left kidney stone. Abdomen X-Ray 06/11/20 09:32 IMPRESSION: 1. Nasogastric tube in the stomach. Labs La
--- NOTE | 2020-06-12 11:12 | WPDINTPN ---
Progress Note: A&P Assessment and Plan (1) GI bleed: Qualifiers: GI bleed type/associated pathology: melena Qualified Code(s): K92.1 - Melena Code(s): K92.2 - Gastrointestinal hemorrhage, unspecified Status: Acute Assessment and Plan: patient presented the ED with melena, syncope, active hematemesis - 06/11/2020: EGD showed a hiatal hernia followed at the GE junction, nonobstructive Schatzki's ring at GE junction. Will deep ulcer measuring 10 mm visualize the fundus of the stomach with bleeding noted which was cauterized, injected with epinephrine and 5 full resolution clips were placed to control the bleeding successfully. Moderate gastritis was seen in the stomach. Biopsies were taken - no more episodes of bleeding, hemoglobin stable - patient on full liquid diet - Protonix infusion switched to Protonix IV q.12 hours - appreciate GI following the patient (2) Acute blood loss anemia: Code(s): D62 - Acute posthemorrhagic anemia Status: Acute Assessment and Plan: acute anemia likely secondary to post hemorrhagic GI bleed. Received a total of 3 units of packed RBCs since admission - hemoglobin has been stable (3) Syncope: Qualifiers: Syncope type: unspecified Qualified Code(s): R55 - Syncope and collapse Code(s): R55 - Syncope and collapse Status: Acute Assessment and Plan: syncope likely related to GI bleed secondary to possible hypotension, hypovolemia - patient has been adequately fluid-resuscitated and has been receiving blood transfusions - will continue to monitor hemodynamics (4) Hypertension: Code(s): I10 - Essential (primary) hypertension Status: Chronic Assessment and Plan: patient with history of essential hypertension, will hold all antihypertensives (5) GERD with stricture: Code(s): K21.9 - Gastro-esophageal reflux disease without esophagitis; K22.2 - Esophageal obstruction Status: Acute Assessment and Plan: history of GERD with esophageal stricture, dilation x2 done at [place] in 2019 - GI following (6) DVT prophylaxis: Code(s): Z29.9 - Encounter for prophylactic measures, unspecified Status: Acute Assessment and Plan: SCDs Additional Plan discussed with patient and updated her with her condition and plan of care. I answered all questions code status: Full code critical care time spent: 31 minutes Due to a high probability of clinically significant, life threatening deterioration, the patient required my highest level of preparedness to intervene emergently and I personally spent this critical care time directly and personally managing the patient. This critical care time included obtaining a history; examining the patient; pulse oximetry; ordering and review of studies; arranging urgent treatment with development of a management plan; evaluation of patient's response to treatment; frequent reassessment; and discussions with other providers. It was exclusive of separately billable procedures and treating other patients and teaching time. Please see Assessment and Plan section and the rest of the note for further information on patient assessment and treatment Subjective Date/time seen: 06/12/20 11:12 Interval history: Reason for consult: GI bleed and anemia 06/11/2020: EGD showed a hiatal hernia followed at the GE junction, nonobstructive Schatzki's ring at GE junction. Will deep ulcer measuring 10 mm visualize the fundus of the stomach with bleeding noted which was cauterized, injected with epinephrine and 5 full resolution clips were placed to control the bleeding successfully. Moderate gastritis was seen in the stomach. Biopsies were taken 06/12/2020: Patient seen and examined this morning. Hemoglobin has been stable. No bleeding overnight. Hemodynamically stable, denies any shortness of breath, abdominal pain, nausea, vomiting, diarrhe
[2020-06-12] MEDS: PANTOPRAZOLE 40 MG TABLET PO ×2 (11:44→20:54)
--- NOTE | 2020-06-12 17:16 | PM.IMPN ---
Progress Note: A&P Assessment and Plan (1) GI bleed: Qualifiers: GI bleed type/associated pathology: melena Qualified Code(s): K92.1 - Melena Code(s): K92.2 - Gastrointestinal hemorrhage, unspecified Status: Acute Assessment and Plan: EGD revealed gastric fundus ulcer with spontaneous bleeding. Hgb dropped to 7.4 yesterday morning but better today. She has received 3U total of PRBC. Tolerating oral intake. Contineu to monitor for recurrence. Appreciate GI input. (2) Gastric ulcer: Qualifiers: Gastric ulcer chronicity: acute Gastric ulcer complication status: with hemorrhage Qualified Code(s): K25.0 - Acute gastric ulcer with hemorrhage Code(s): K25.9 - Gastric ulcer, unspecified as acute or chronic, without hemorrhage or perforation Status: Acute Assessment and Plan: EGD revealed gastric fundus ulcer with spontaneous bleeding vessel on probing treated with Epi injection, cautery, and clipping. Hgb stable. Contineu PPI. (3) Syncope: Qualifiers: Syncope type: unspecified Qualified Code(s): R55 - Syncope and collapse Code(s): R55 - Syncope and collapse Status: Acute Assessment and Plan: secondary to drop in blood pressure and her GI bleed. continue to monitor (4) Hypertension: Code(s): I10 - Essential (primary) hypertension Status: Chronic Assessment and Plan: Patient's blood pressure was reviewed on 06/12/20 Blood pressure remains well controlled. Will continue to monitor. amlodipine remains on hold. (5) Osteoporosis: Code(s): M81.0 - Age-related osteoporosis without current pathological fracture Status: Chronic Assessment and Plan: She takes Prolia injections every 6 months and is due for approximately 2 weeks from now. (6) Acute blood loss anemia: Code(s): D62 - Acute posthemorrhagic anemia Status: Acute Assessment and Plan: secondary to bleeding ulcer. Has received 3 units of packed cells to date. Hgb remianing stable. (7) DVT prophylaxis: Code(s): Z29.9 - Encounter for prophylactic measures, unspecified Status: Acute Assessment and Plan: mechanical with GI bleeding Subjective Date/time seen: 06/12/20 17:16 Interval history: date of visit 06/12. 65-year-old female admitted after syncopal episode, melanotic stool, and hematemesis. EGD on 06/11 revealed ulcer in gastric fundus with visible vessel that was treated with epi injection, cauterization, and clipping. No complaints. Eating well. Up walking in the room. No chest pain or shortness of breath. No abdominal pain. No nausea or vomiting Exam Narrative: Exam Narrative: AF 111/71 88 16 98% ra Gen - NARD sitting up in a chair Chest - CTA bilaterally, nml RR CV - RRR S1/S2; telemetry showing no significant dysrhythmias Abd - Soft, NT/ND, Positive BS Ext - No pedal edema Psych - Nml mood and affect Skin - Warm and dry Objective Data Vital Signs Vital Signs: Vital Signs - 24 hr 06/11/20 19:49 06/11/20 19:51 06/11/20 20:00 Temperature 97.8 F Pulse Rate 97 97 97 Respiratory Rate 18 16 Blood Pressure 117/54 L Pulse Oximetry 99 97 06/12/20 00:00 06/12/20 04:00 06/12/20 06:00 Temperature 97.8 F 98.1 F 97.9 F Pulse Rate 99 87 84 Respiratory Rate 16 18 17 Blood Pressure 117/54 L 110/49 L 104/50 L Pulse Oximetry 99 99 99 06/12/20 08:00 06/12/20 10:00 06/12/20 11:52 Temperature 98.1 F 98.4 F Pulse Rate 82 94 85 Respiratory Rate 16 16 16 Blood Pressure 110/54 L 108/63 111/71 Pulse Oximetry 99 99 99 06/12/20 12:00 06/12/20 14:00 06/12/20 16:00 Temperature 98.4 F Pulse Rate 81 91 88 Respiratory Rate 24 H 16 Blood Pressure Pulse Oximetry 98 98 Intake/Output Intake/Output: Intake & Output 06/09/20 06/10/20 06/11/20 06/12/20 23:59 23:59 23:59 23:59 Intake Total 1000 4551 1910 Output Total
--- NOTE | 2020-06-12 18:29 | PC.NURSE ---
Patient transferred to [facility], report given to Bernie MARTÍNEZ all belongings sent with patient
--- NOTE | 2020-06-12 18:33 | PC.NURSE ---
This patient, Melissa Ambriz, was received from ICU on 06/12/20 at 1825. Personal belongings list checked and signed. Patient oriented to unit policies and routines
[2020-06-13 06:00] VITALS: BP 117/54; PULSE 82; RESP 16; TEMP 37.4; O2SAT 96
[2020-06-13 08:19] LABS: Hematocrit 26.4 % (37.0-47.0); Mean Corpuscular HGB Conc 34.1 g/dl (32-36); Mean Platelet Volume 10.9 fl (7.4-10.4); Platelet Count Result 266 k/mm3 (150-375); Red Cell Distribution Width 14.4 % (11.5-14.5); White Blood Count 8.8 K/mm3 (4.5-10.0)
[2020-06-13] MEDS: PANTOPRAZOLE 40 MG TABLET PO (08:56)
--- NOTE | 2020-06-13 09:35 | WPDGIPROGNO ---
Progress Note: A&P Assessment and Plan (1) Gastric ulcer: Qualifiers: Gastric ulcer chronicity: acute Gastric ulcer complication status: with hemorrhage Qualified Code(s): K25.0 - Acute gastric ulcer with hemorrhage Code(s): K25.9 - Gastric ulcer, unspecified as acute or chronic, without hemorrhage or perforation Status: Acute Assessment and Plan: no more bleeding, will need ppi bid she is tolerating diet with stable hb after blood transfusion gastric bx showed gastritis without H pylori she will need also EGD in 3 months to reassess again she can go home (2) Melena: Code(s): K92.1 - Melena Status: Acute Assessment and Plan: no more bleeding (3) Acute blood loss anemia: Code(s): D62 - Acute posthemorrhagic anemia Status: Acute Assessment and Plan: stable hb last 24 hours (4) Syncope: Qualifiers: Syncope type: unspecified Qualified Code(s): R55 - Syncope and collapse Code(s): R55 - Syncope and collapse Status: Acute Assessment and Plan: on presentation, she is hemodynamically stable now Subjective Date/time seen: 06/13/20 09:32 Interval history: tolerating regular diet, no more bleeding and she is feeling like going home Review of Systems Review of Systems: All systems reviewed & are unremarkable except as noted in HPI and below Exam Const: General: comfortable and no acute distress HENMT: General nose exam: Normal nares present Eyes: General: appearance normal, both eyes and all related structures Neck: Neck: no JVD Resp: Auscultation: clear to auscultation bilaterally Cardio: Rate: regular rate Rhythm: regular rhythm GI: Inspection: non-distended GI Palp: Yes Soft to palpation Skin: General skin exam: normal color Neuro: General: gait normal Speech: normal speech Extrem: General: normal to inspection Psych: Mental Status: mental status grossly normal Objective Data Vital Signs Vital Signs: Vital Signs - 24 hr 06/12/20 11:52 06/12/20 12:00 06/12/20 14:00 Temperature 98.4 F Pulse Rate 85 81 91 Respiratory Rate 16 24 H Blood Pressure 111/71 Pulse Oximetry 99 98 06/12/20 16:00 06/12/20 20:00 06/12/20 22:00 Temperature 98.4 F 98.9 F Pulse Rate 88 86 86 Respiratory Rate 16 16 16 Blood Pressure 116/59 L Pulse Oximetry 98 97 97 06/13/20 06:00 Temperature 99.3 F Pulse Rate 82 Respiratory Rate 16 Blood Pressure 117/54 L Pulse Oximetry 96 Intake/Output Intake/Output: Intake & Output 06/10/20 06/11/20 06/12/20 06/13/20 23:59 23:59 23:59 23:59 Intake Total 1000 4907 3190 200 Output Total 150 1800 2500 Balance 850 3107 690 200 Meds/Results Medications: Active Medications Generic Name Dose Route Start Last Admin Trade Name Freq PRN Reason Stop Dose Admin Pantoprazole Sodium 40 mg 06/12/20 10:30 06/13/20 08:56 Protonix PO 40 mg Q12HR CHRISTIANO Administration Radiology Results: ITS Impressions Head CT 06/10/20 14:00 IMPRESSION: 1. Normal brain. Shoulder X-Ray 06/10/20 14:07 IMPRESSION: 1. Moderate right acromioclavicular joint osteoarthritis. Abdomen/Pelvis CT 06/10/20 14:08 IMPRESSION: 1. Small sliding hiatal hernia. 2. Nonobstructing left kidney stone. Abdomen X-Ray 06/11/20 09:32 IMPRESSION: 1. Nasogastric tube in the stomach. Labs Labs: Laboratory Results - last 24 hr 06/13/20 07:44 WBC 8.8 RBC 2.90 L Hgb 9.0 L Hct 26.4 L MCV 91.0 MCH 31.0 MCHC 34.1 RDW 14.4 Plt Count 266 MPV 10.9 H
--- NOTE | 2020-06-13 10:48 | PM.DS ---
DS: Admitting Diagnosis Admitting Diagnosis Admitting Diagnosis: syncope/gi bleed DS: Discharge Diagnosis Discharge Diagnosis (1) GI bleed: Qualifiers: GI bleed type/associated pathology: melena Qualified Code(s): K92.1 - Melena Code(s): K92.2 - Gastrointestinal hemorrhage, unspecified Status: Acute Assessment and Plan: Admitted for GI bleed. EGD revealed gastric fundus ulcer with spontaneous bleeding. Hgb dropped to 7.4 but better after receiving 3U total of PRBC. Hgb stable in the 9-10 range since transfusion. Tolerating oral intake. (2) Gastric ulcer: Qualifiers: Gastric ulcer chronicity: acute Gastric ulcer complication status: with hemorrhage Qualified Code(s): K25.0 - Acute gastric ulcer with hemorrhage Code(s): K25.9 - Gastric ulcer, unspecified as acute or chronic, without hemorrhage or perforation Status: Acute Assessment and Plan: EGD revealed gastric fundus ulcer with spontaneous bleeding vessel on probing treated with Epi injection, cautery, and clipping. Hgb stable. Treated wit IV Protonix. (3) Syncope: Qualifiers: Syncope type: unspecified Qualified Code(s): R55 - Syncope and collapse Code(s): R55 - Syncope and collapse Status: Acute Assessment and Plan: Secondary to drop in blood pressure and her GI bleed. No recurrence. Up ambulating without difficulty. (4) Hypertension: Code(s): I10 - Essential (primary) hypertension Status: Chronic Assessment and Plan: Patient's blood pressure was reviewed on 06/13 Blood pressure remains well controlled. Will continue to monitor. amlodipine remained on hold. (5) Osteoporosis: Code(s): M81.0 - Age-related osteoporosis without current pathological fracture Status: Chronic Assessment and Plan: She takes Prolia injections every 6 months and is due for approximately 2 weeks from now. (6) Acute blood loss anemia: Code(s): D62 - Acute posthemorrhagic anemia Status: Acute Assessment and Plan: secondary to bleeding ulcer. Has received 3 units of packed cells to date. Hgb remianing stable. (7) DVT prophylaxis: Code(s): Z29.9 - Encounter for prophylactic measures, unspecified Status: Acute Assessment and Plan: mechanical with GI bleeding DS: Summary Hospital Course Reason for hospitalization: 65yo female here for GI bleed. Please see H&P for details. Hospital Course: as above Time Spent with Patient Time attestation: Total time spent providing and/or coordinating discharge services: 35 minutes Time spent: Greater than 30 minutes Exam Narrative: Exam Narrative: feels well today. No complaints. Tolerating oral intake. Nausea or vomiting. AF 117/54 82 16 96% ra Gen - NARD Chest - CTA bilaterally, nml RR CV - RRR S1/S2 Abd - Soft, NT/ND, Positive BS Ext - No pedal edema Psych - Nml mood and affect Skin - Warm and dry DS: Data Data Completed and Pending Completed studies during hospitalization: Pending at discharge 06/11/20 12:51 Surgical [PTH] Routine Labs on day of discharge: Labs from last 24 hours 06/13/20 07:44 WBC 8.8 RBC 2.90 L Hgb 9.0 L Hct 26.4 L MCV 91.0 MCH 31.0 MCHC 34.1 RDW 14.4 Plt Count 266 MPV 10.9 H Discharge Plan Discharge Attending physician on discharge: Austin Rider Consulting providers: Umang Dominguez ; Carrie Valentine Discharging Clinician: Austin Rider Anticipated Discharge Date/Time: 06/13/20 10:56 Patient Disposition: Home, Self-Care Activity: as tolerated Diet: regular and bland Discharge Instructions: Please avoid large gathering, wear face coverings in public and practice social distance. Follow-up with your doctor in 1-2 weeks. Please call for appointment. Patient Instructions: Antibiotic Form Stand Alone Forms: Ge
== END 2020-06-13 11:40 | disposition home or self-care (01) | DRG 378 ==
LOC: ANHED 16:54 → ANH2MED 17:53 → ANHICU 06-11 07:24 → ANH2MED 06-13 11:01 → ANHICU 06-14 13:46
PROVIDERS: Internal Medicine; Internal Medicine Gastroenterology; Nurse Practitioner; Admitting Provider Family Medicine; Emergency Provider Emergency Medicine; Visit Provider Internal Medicine
PROC: 0DJ08ZZ Inspection of Upper Intestinal Tract, Via Natural or Artificial Opening Endoscopic (ICD-10-PCS; CPT 43235; principal; 2020-06-11 12:00)
DX: K25.0 Acute gastric ulcer with hemorrhage (principal); D62 Acute posthemorrhagic anemia; K22.2 Esophageal obstruction; K21.9 Gastro-esophageal reflux disease without esophagitis; K29.70 Gastritis, unspecified, without bleeding; K44.9 Diaphragmatic hernia without obstruction or gangrene; R55 Syncope and collapse; M81.0 Age-related osteoporosis without current pathological fracture; N20.0 Calculus of kidney; I10 Essential (primary) hypertension; Z79.899 Other long term (current) drug therapy; Z90.81 Acquired absence of spleen
CPT/HCPCS: 36415; 36430; 70450; 73030; 74177; 80048; 80053; 82274; 82728; 83735; 84100; 84443; 85014; 85018; 85025; 85027; 86850; 86900; 86901; 86923; 87081; 88305; 93005; 96361; 96365; 96366; 99285; A9270; C9113; G0378; J0171; J2704; J7030; J7050; J7060; J7120; P9016; Q9967

== ENCOUNTER 2021-11-29 11:29 | Outpatient (CLI) | payer MEDICARE, SELFPAY ==
--- NOTE | ~2021-11-29 | CT_ITS ---
EXAMINATION: CT abdomen pelvis wo/w con DATE: 11/29/2021 12:22 INDICATION: Renal mass TECHNIQUE: Computed tomography (CT) of the abdomen and pelvis was performed without and subsequently with 100 cc Omnipaque 350 intravenous contrast. Automated exposure control and iterative reconstructi on technique were employed. Exam dose: 1000.64 mGy-cm total exam DLP. COMPARISON: 06/10/2020 CT abdomen pelvis FINDINGS: The lung bases are clear of infiltrate or consolidation. Normal heart size. No pericardial or pleural effusion. Small sliding hiatal hernia. Small apparent hepatic parenchymal calcification near the posterior aspect of the gallbladder, also p resent on 06/10/2020, possibly a small calcified granuloma. The liver and gallbladder are otherwise un remarkable. The spleen is absent. No pancreatic mass lesion, calcification or ductal dilatation. Normal morphology of the adrenal glands. Approximately 3.8 x 7 mm nonobstructing left renal calculus. No other urinary tract calculus or hydro ureteronephrosis is detected. There is a posterior upper pole nonspecific approximately 7 mm area of hypoenhancement of the left ki dney. Stable approximately 8.3 mm cyst of the posterolateral upper pole of the left kidney since 06/10/2020. Stable exophytic approximately 9.7 mm posterior lower pole left renal cyst. Stable approximately 8.8 mm cyst of the lower pole the left kidney. Normal caliber of the abdominal aorta. No intraperitoneal or retroperitoneal or pelvic mass lesion or adenopathy or ascites is detected. There are numerous diverticula of the sigmoid and to a lesser extent descending colon; no CT evidence of diverticulitis. No bowel wall thickening, pneumatosis or intraperitoneal free air. Small fat-containing umbilical hernia. There is prominent degenerative change at the apophyseal joints in the lower lumbar area with associa payal grade 1 anterolisthesis at L4-5. IMPRESSION: Indeterminate posterior upper pole left renal 7 mm hypoenhancing lesion; consider MR kid blanca examination or 6-[address] renal follow-up. Multiple stable left renal cysts Nonobstructing lower pole left renal calculus Absent spleen Small sliding hiatal hernia Diverticulosis of the left colon; no CT evidence of diverticulitis Reviewed, dictated and finalized at [facility]. Reviewed, dictated and finalized at [facility]. 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 Multiple stable left renal cysts Nonobstructing lower pole left renal calculus Absent spleen Small sliding hiatal hernia Diverticulosis of the left colon; no CT evidence of diverticulitis
[2021-11-29 12:13] LABS: Estimated Glomerular Filt Rate 55
== END 2021-11-29 11:30 | disposition home or self-care (01) ==
PROVIDERS: Visit Provider Urology
DX: N28.89 Other specified disorders of kidney and ureter (principal); N28.1 Cyst of kidney, acquired; K44.9 Diaphragmatic hernia without obstruction or gangrene; K57.90 Diverticulosis of intestine, part unspecified, without perforation or abscess without bleeding; Z90.81 Acquired absence of spleen
CPT/HCPCS: 74178; Q9967

== ENCOUNTER 2022-01-25 14:45 | Emergency (ER) | payer MEDICARE, SELFPAY ==
--- NOTE | ~2022-01-25 | XR_ITS ---
EXAM: XR finger 1st RT min 2V HISTORY: Laceration COMPARISON: None available FINDINGS: Decreased mineralization. Mild scattered degenerative changes. No fracture or dislocation. No lytic or blastic lesions. IMPRESSION: No radiographic evidence of acute osseous abdomen out in the right thumb. Reviewed, dictated and finalized at [facility].
[2022-01-25 14:47] VITALS: BP 102/88; PULSE 83; RESP 16; TEMP 36.3; O2SAT 97
[2022-01-25] MEDS: TETANUS,DIPHTHERIA,AC PERTUSSIS ADULT (0.5 ML) BOOSTRIX IM (15:09)
--- NOTE | 2022-01-25 16:14 | ED.GENADULT ---
HPI - General Adult General Chief complaint: Wound/Laceration Stated complaint: right thumb laceration Time Seen by Provider: 01/25/22 14:57 History of Present Illness HPI narrative: Patient is a 66-year-old healthy, [id number] female who presents today after sustaining a laceration to her right thumb about 1 hour prior to arrival. She states that she was reaching in her sink when her blade from her blender/braze applicator cut her finger. States that she wash the area out with soap and water prior to arrival, was unable to control the bleeding which is why she presented today. She denies any blood thinner use. Denies any numbness, tingling, weakness to her hand. Able to move her hand without difficulty. Last tetanus unknown. Related Data Home Medications Medication Instructions Recorded Confirmed Prolia 60 mg SUBCUT [id number] 06/10/20 06/10/20 amlodipine 5 mg PO DAILY 06/10/20 06/10/20 calcium carbonate [Antacid 750 mg PO Q2-3H PRN 06/10/20 06/10/20 (calcium carbonate)] ergocalciferol (vitamin D2) 50,000 unit PO WEEKLY 06/10/20 06/10/20 melatonin 10 mg PO HS 06/10/20 06/10/20 Allergies Allergy/AdvReac Type Severity Reaction Status Date / Time No Known Allergies Allergy Verified 06/21/20 09:35 Review of Systems Review of Systems: Gen.: Denies fevers or chills Eyes: Denies eye pain or visual change ENT: Denies congestion Respiratory: Denies shortness of breath or cough CV: Denies chest pain or palpitations GI: Denies abdominal pain nausea, emesis or diarrhea denies burning, urgency, frequency or hematuria Musculoskeletal: Denies back pain or muscle pain Neuro: Denies numbness, tingling, weakness or focal weakness Skin: Positive for laceration to right thumb . 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 She is a full code. 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 Her is a durable power attorney general for healthcare. She may be drinks 1 drink a month. She does not use any marijuana tobacco or illicit drugs. She has 3 children. Smoking status: Never smoker Alcohol intake: never Substance use: never Gender identity (if verbalized by the patient): Female Spiritual care concerns: No Exam Const: General: no acute distress and alert Orientation/consciousness: patient oriented x3 HENMT: Head: normal to inspection Eyes: Conjunctivae: conjunctivae normal Neck: Neck: normal visual inspection Chest: Chest palpation & inspection: normal inspection of the chest Resp: Effort & Inspection: normal respiratory effort, not tachypneic and no use of accessory muscles Cardio: Rate: regular rate Skin: General skin exam: normal color Other: Patient has a 1.5 cm superficial linear laceration to her right first digit just overlying the interphalangeal joint. She has full range of motion in her thumb and hand. Good capillary refill. Sensation intact. No foreign body visualized in wound. Course Vital Signs Vital signs: Vital Signs Temperature 97.4 F L 01/25/22 14:47 Pulse Rate 83 04
== END 2022-01-25 16:47 | disposition home or self-care (01) ==
PROVIDERS: Emergency Provider Emergency Medicine
DX: S61.011A Laceration without foreign body of right thumb without damage to nail, initial encounter (principal); Z23 Encounter for immunization; I10 Essential (primary) hypertension; K21.9 Gastro-esophageal reflux disease without esophagitis; M81.0 Age-related osteoporosis without current pathological fracture; Z90.81 Acquired absence of spleen; W27.4XXA Contact with kitchen utensil, initial encounter
CPT/HCPCS: 12001; 73140; 90471; 90715; 99283

== ENCOUNTER 2022-02-05 10:11 | Outpatient (CLI) | payer MEDICARE, SELFPAY ==
--- NOTE | ~2022-02-05 | XR_ITS ---
EXAMINATION: XR abdomen/kub 1V INDICATION: Calcium kidney stone TECHNIQUE: Supine views of the abdomen were obtained on 2 radiographs. COMPARISON: 06/01/2020; CT, 11/29/2021 FINDINGS: There is a subtle 6 mm stone of the left mid kidney. No additional urolithiasis is identifi ed. There are no dilated loops of bowel. Phleboliths are noted pelvis. There is mild osteoarthritis o f the hips. IMPRESSION: 1. Left nephrolithiasis. Reviewed, dictated and finalized at location [facility]. IMPRESSION: 1. Left nephrolithiasis.
== END 2022-02-05 10:12 | disposition home or self-care (01) ==
LOC: ANHIMG 10:15
PROVIDERS: Visit Provider Urology
DX: N20.0 Calculus of kidney (principal)
CPT/HCPCS: 74018

== ENCOUNTER → 2023-02-18 08:53 | Outpatient (CLI) | payer MEDICARE, SELFPAY ==
--- NOTE | ~2023-02-18 | XR_ITS ---
EXAMINATION: XR abdomen/kub 1V DATE: 02/18/2023 09:17 INDICATION: Calculus of kidney. TECHNIQUE: A supine view of the abdomen on 2 radiographs was obtained. COMPARISON: CT abdomen and pelvis 11/29/2021 FINDINGS: There are no dilated loops of bowel. There is a moderate volume of stool in the colon. Ther e are phleboliths in the pelvis. There is a 6 mm stone in left kidney. IMPRESSION: 1. 6 mm stone in left kidney. Reviewed, dictated and finalized at location [facility].
== END ==
PROVIDERS: Visit Provider Urology
DX: N20.0 Calculus of kidney (principal)
CPT/HCPCS: 74018

== ENCOUNTER 2023-03-13 10:10 | Outpatient (CLI) | payer MEDICARE, SELFPAY ==
[2023-03-13 10:56] LABS: Anion Gap 6 mmol/L (8-16); Blood Urea Nitrogen 17 mg/dL (7-17); Carbon Dioxide 31 mmol/L (22-30); Chloride 104 mmol/L (98-107); Estimated Glomerular Filt Rate 55; Glucose 74 mg/dL (65-110); Potassium 3.9 mmol/L (3.4-5.0); Sodium 141 mmol/L (137-145)
[2023-03-13 10:59] LABS: INR 0.9; Prothrombin Time 12.7 Seconds (11.1-14.7)
[2023-03-13 11:00] LABS: Partial Thromboplastin Time 32.1 SECONDS (22.3-36.8)
== END 2023-03-13 10:11 | disposition home or self-care (01) ==
LOC: ANHSURGERY 10:17
PROVIDERS: Anesthesiology; Visit Provider Urology
DX: N20.0 Calculus of kidney (principal); I10 Essential (primary) hypertension; Z01.818 Encounter for other preprocedural examination
CPT/HCPCS: 36415; 80048; 85610; 85730; 87086; 87088

== ENCOUNTER 2023-03-20 01:03 | Day surgery (SDC) | payer MEDICARE, SELFPAY ==
--- NOTE | 2023-03-05 11:01 | PC.NURSE ---
Report to the Outpatient Waiting Room, entrance under the green pavilion located off [facility], at time _0600____ on date __03/20/23 . Planned Procedure Time: ___729 . Time changes happen often and if your time is changed the preop area will call you the afternoon before. - You and your visitor will be asked to self-screen and do not enter if you have any COVID symptoms. - A mask is optional within the hospital at this time. Patients may have clear liquids (water, carbonated beverages, clear teas, apple juice) until 3 hours prior to surgery with a maximum of 20 ounces. - No food from midnight until time of surgery - Infants may have breast milk until 4 hours before surgery, formula 6 hours prior to surgery. - Children will be allowed to drink immediately following surgery. If applicable, please bring a bottle or sippy cup to assist with drinking. Juice, water, soda, and popsicles are readily available. For infants on formula, please bring formula the day of surgery. Pacifiers are allowed. Take the following medications with a SIP of water the morning of surgery: __NONE DO NOT STOP ANY OF YOUR OTHER PRESCRIPTION MEDICATIONS PRIOR TO SURGERY ?EXCEPT THE FOLLOWING Medications to discontinue per physician PT STATES HOLD ALL VITAMINS/SUPPLEMENTS 7 DAYS PRE P OP PER DR WOOD.LAST DOSE 03/12/23___ Please no make-up, nail latvian, hairspray, perfume, deodorant, or body powder the day of surgery. No jewelry (including any body piercings) or valuables the day of surgery, leave them at home. Please take a shower or bath the night before, or the morning of, surgery with an antibacterial soap. Wear comfortable, loose fitting clothing. Children are encouraged to wear pajamas. - Jewelry must be removed prior to entering the operating room. Rings and piercings that are not removed may be cut off. - The hospital will not accept responsibility for valuables. - Please leave all valuables, including medications, at home the day of surgery. If you are going home after surgery, a licensed hazmat cdl a driver must drive you home. - NO public transportation without another adult if you receive anesthesia. - We recommend that an adult stay with you for 24 hours following discharge. - We also recommend that you do not drive, make important decision, drink alcoholic beverages, or take any drugs that were not prescribed by your health care provider for at least 24 hours after your discharge time. For Pediatric surgeries, we recommend two adults accompany the child home. Follow any additional instructions given to you from your surgeon. If you or anyone in your household have experienced Covid symptoms in the past week, please notify your surgeon or the nurse liaison at the phone number below for possible testing. Telephone instructions given to ___PATIENT and asked if any additional questions and then verbalized understanding. Patient advised to call surgeon office or pre surgery nurse liaison [phone] if any additional questions.
[2023-03-05 11:11] VITALS: BMI 29.2
--- NOTE | ~2023-03-20 | XR_ITS ---
EXAMINATION: XR abdomen/kub 1V INDICATION: Calculus of the left kidney TECHNIQUE: Supine views of the abdomen were obtained on 2 radiographs. COMPARISON: 02/18/2023 FINDINGS: There is a stable 6 mm stone of the left kidney. No additional urolithiasis is identified. There are phleboliths of the pelvis. The bowel gas pattern is normal. The visualized lung bases are c lear. A calcified left hilar lymph node is consistent with old granulomatous disease. IMPRESSION: 1. 6 mm stone of the left kidney. Reviewed, dictated and finalized at location A.
[2023-03-20 06:21] VITALS: BP 129/73; PULSE 79; RESP 16; TEMP 36.2; O2SAT 96
--- NOTE | 2023-03-20 06:40 | WPDANESEPPF ---
Anes - Initial Pre Proc Eval Procedure: Operation Date: 03/20/23 07:30 Proposed Procedures p Left Extracorporeal Shock Wave Lithotripsy - Tu Gallego MD Date/Time: 03/20/23 06:40 Surgeon: Tu Gallego MD Pre Op Diagnosis: Lt Renal Stone Patient Data Age: 67 Gender: F Height: 1.63 m Weight: 76.8 kg Last Vital Signs Temp 36.2 C L 03/20/23 06:21 Pulse 79 03/20/23 06:21 Resp 16 03/20/23 06:21 BP 129/73 03/20/23 06:21 Pulse Ox 96 03/20/23 06:21 O2 Del Method Room Air 03/20/23 06:21 Allergies Allergy/AdvReac Type Severity Reaction Status Date / Time No Known Allergies Allergy Verified 03/20/23 06:16 Home Medications Medication Instructions Recorded Confirmed Type calcium carbonate 320 mg calcium 750 mg PO Q2-3H PRN Acid Reflux 06/10/20 03/05/23 History (750 mg) chewable tablet (Antacid (calcium carbonate)) denosumab 60 mg/mL subcutaneous 60 mg subcut [id number] 06/10/20 03/05/23 History syringe (Prolia) melatonin 10 mg tablet 20 mg PO HS 06/10/20 03/05/23 History pantoprazole 40 mg tablet,delayed 40 mg PO Q12HR #60 tabs 06/13/20 03/05/23 Rx release chlorthalidone 25 mg tablet 25 mg PO DAILY 03/05/23 03/05/23 History cholecalciferol (vitamin D3) 125 125 mcg PO DAILY 03/05/23 03/05/23 History mcg (5,000 unit) capsule losartan 50 mg tablet 50 mg PO HS 03/05/23 03/05/23 History mirabegron 25 mg tablet,extended 25 mg PO DAILY 03/05/23 03/05/23 History release 24 hr (Myrbetriq) Patient hx anesthesia problems: none Family hx anesthesia problems: none Results Review: All pre-operative results and documents have been reviewed as part of the pre-operative evaluation. 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 She is a full code. 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 Her is a durable power senior trial attorney for healthcare. She may be drinks 1 drink a month. She does not use any marijuana tobacco or illicit drugs. She has 3 children. Smoking status: Never smoker Alcohol intake: current Alcohol use details: ONE DRINK PER MONTH Substance use: never Living arrangements: with family Gender identity (if verbalized by the patient): Female Spiritual care concerns: No Anes - Eval Final PreProcedure Day of Procedure 03/20/23 06:40 Patient weight: overweight Heart: regular rate and rhythm Lungs: clear to auscultation Airway: Mallampati scale class II Neurological: alert and oriented Last oral intake: >/= 8 hours ASA classification: II Emergent: no Anesthetic plan: proceed Anesthesia type and monitoring: general LMA and standard monitoring Results Review: All pre-operative results and documents have been reviewed as part of the pre-operative evaluation. Informed Consent: The patient's anesthetic plan and its attendant risks and benefits were discussed with the patient/family/POA. Questions were solicited and answers provided to the satisfaction of the patient/family/POA.
[2023-03-20] MEDS: LACTATED RINGERS 1,000 ML 30 ML IV CONT (07:00)
--- NOTE | 2023-03-20 07:14 | WPDHPUPDATE1 ---
History and Physical Update Update Date/Time: 03/20/23 07:14 History and Physical has been reviewed, including an updated exam of the patient. There are NO changes in the patient's condition. Risks, benefits, and alternatives have been discussed and questions answered. Patient agrees to proceed with procedure. Proceed with left renal eswl
[2023-03-20] MEDS: ceFAZolin 2 GM/D5W 50 ML 2 GM/50 ML BAG IVPB (08:35)
--- NOTE | 2023-03-20 09:28 | W.PM.PROC2 ---
Procedure Note - Detailed Date of Procedure 03/20/23 Pre-op Diagnosis Lt Renal Stone Post-op Diagnosis Same Procedure Performed Lithotripsy of left renal calculus 7 mm Surgeon Tu Gallego MD Anesthesia General Description of Procedure patient is taken to the operative suite and correctly identified. Once anesthesia was obtained the stone. Two thousand five hundred shocks were given to the stone. Patient did require some pacing during the procedure. Patient tolerated procedure well without any complications and was taken recovery stable condition. She is given the standard post litho instructions will follow-up in 7-10 days with KUB. This completes the patient placed on a copy op note to my office Estimated Blood Loss 0 Drains No Packing No Pathology None sent Complications No immediate complications Condition Stable Disposition PACU
[2023-03-20 09:33] VITALS: BP 110/70; PULSE 72; RESP 12; TEMP 36.5; O2SAT 98
[2023-03-20 09:45] VITALS: BP 122/72; PULSE 79; RESP 12; O2SAT 100
[2023-03-20 09:55] VITALS: BP 119/71; PULSE 81; RESP 14; O2SAT 95
[2023-03-20 10:00] VITALS: BP 124/66; PULSE 84
[2023-03-20 10:30] VITALS: BP 114/65; PULSE 88
== END 2023-03-20 10:40 | disposition home or self-care (01) ==
PROVIDERS: Visit Provider Urology
PROC: (CPT 50590; principal; 2023-03-20 07:30)
DX: N20.0 Calculus of kidney (principal)
CPT/HCPCS: 50590; 36415; 74018; 80048; 85610; 85730; 87086; 87088; C2617; J0690; J1100; J2250; J2405; J2704; J3010; J7120

== ENCOUNTER 2023-03-27 14:49 | Outpatient (CLI) | payer MEDICARE, SELFPAY ==
--- NOTE | ~2023-03-27 | XR_ITS ---
EXAMINATION: XR abdomen/kub 1V DATE: 03/27/2023 15:13 INDICATION: Calcium kidney stone post lithotripsy one week prior TECHNIQUE: A supine view of the abdomen on 2 radiographs was obtained. COMPARISON: 03/20/[address] dated 11/29/2021 FINDINGS: No significant interval change in a 6 mm horizontally oriented ovoid stone at the mid left kidney. Mu ltiple phleboliths in the pelvis. Bowel gas pattern is unremarkable. Heterotopic ossicles at the medi al aspect of the proximal right thigh. Mild lumbar levocurvature with moderate lower lumbar spondylos is. Lung bases are clear. Heart size is normal. IMPRESSION: 1. Unchanged 6 mm stone in the mid left kidney. Reviewed, dictated and finalized at location [facility].
== END 2023-03-27 14:50 | disposition home or self-care (01) ==
PROVIDERS: Visit Provider Urology
DX: N20.0 Calculus of kidney (principal)
CPT/HCPCS: 74018

== ENCOUNTER 2023-11-03 10:28 | Outpatient (CLI) | payer MEDICARE, SELFPAY ==
--- NOTE | ~2023-11-03 | XR_ITS ---
Supine and upright views of the abdomen Clinical history: Kidney stone COMPARISON: 03/27/2023 Findings: Bowel gas pattern is nonspecific. No evidence for obstruction or free air. No abnormal mass lesion or calcification is seen. Osseous structures are intact. Impression: No significant abnormality is seen. Reviewed, dictated and finalized at [facility]. ER Impression: No significant abnormality is seen.
== END 2023-11-03 10:29 | disposition home or self-care (01) ==
LOC: ANHIMG 10:32
PROVIDERS: Visit Provider Urology
DX: N20.0 Calculus of kidney (principal)
CPT/HCPCS: 74018

== ENCOUNTER 2024-02-12 16:38 | Emergency (ER) | payer MEDICARE, SELFPAY ==
--- NOTE | ~2024-02-12 | XR_ITS ---
EXAMINATION: XR chest 2V DATE: 02/12/2024 17:20 INDICATION: Right chest pain TECHNIQUE: PA and lateral views of the chest were obtained. COMPARISON: None FINDINGS: The lungs are clear with no focal airspace opacities, pulmonary edema, pleural effusion or pneumothor ax. Heart size is normal. Comment calcified left hilar lymph nodes consistent with old granulomatous disease. Mild S-shaped scoliosis of the thoracic and lumbar spine. There is also mild thoracic kyphos is with mild anterior wedging of a midthoracic vertebral body. IMPRESSION: 1. No acute cardiopulmonary disease. Reviewed, dictated and finalized at location A.
[2024-02-12 16:41] VITALS: BP 150/96; PULSE 72; RESP 16; TEMP 36.6; O2SAT 97
--- NOTE | 2024-02-12 16:45 | ECG_ITS ---
SEE SCANNED COPY FOR CONFIRMED REPORT MTDD
--- NOTE | 2024-02-12 16:46 | ED_ITS ---
HPI - General Adult General Chief complaint: Unspecified <Rhonda Jacinto PA-C - Last Filed: 02/12/24 16:47> Stated complaint: right side pain <Rhonda Jacinto PA-C - Last Filed: 02/12/24 16:47> Time Seen by Provider: 02/12/24 18:01 <Rhonda Jacinto PA-C - Last Filed: 02/12/24 16:47> Focused HPI: 68-year-old female presents to the emergency department for right lower rib pain x2 days. Patient states she has issues with esophageal strictures and occasionally has to get her esophagus dilated. States 2 days ago she was EGD and started vomiting, since then she has been having pleuritic pain to her right lower ribs. She denies injury or trauma to this area, history of VTE, cough or congestion, fever. GENERAL: Well-appearing, well-nourished, and in no acute distress. HEAD: Normocephalic, atraumatic. CHEST: Clear to auscultation. ?No respiratory distress. HEART: Regular rate and rhythm.? NEURO: ?Alert and oriented x3. Patient screened in triage and initial orders placed.? ?Additional care and disposition to be based upon?diagnostic testing and treatment. <Rhonda Jacinto PA-C - Last Filed: 02/12/24 16:47> Source: patient and family <Amandeep Benitez MD - Last Filed: 02/12/24 18:17> Mode of arrival: ambulatory <Amandeep Benitez MD - Last Filed: 02/12/24 18:17> Limitations: no limitations <Amandeep Benitez MD - Last Filed: 02/12/24 18:17> History of Present Illness HPI narrative: 68-year-old female <Rhonda Jacinto PA-C - Last Filed: 02/12/24 16:47> 68-year-old female with a history of hypertension, esophageal stricture status post EGD done few days ago here with a complaint of right lower rib cage pain. Patient states that she was gagging and coughing after the EGD and ever since then she has been having pain constantly in the right lower ribcage area. Patient states that to him she takes a deep breath or cough has pain. She denied any shortness of breath. No history of fever or chills. She is worried about possible rib fracture <Amandeep Benitez MD - Last Filed: 02/12/24 18:17> Onset (ago): day(s) (2) <Amandeep Benitez MD - Last Filed: 02/12/24 18:17> Location: chest (Right lower) <Amandeep Benitez MD - Last Filed: 02/12/24 18:17> Radiation: non-radiation <Amandeep Benitez MD - Last Filed: 02/12/24 18:17> Severity: moderate <Amandeep Benitez MD - Last Filed: 02/12/24 18:17> Quality: aching <Amandeep Benitez MD - Last Filed: 02/12/24 18:17> Pain Consistency: constant <Amandeep Benitez MD - Last Filed: 02/12/24 18:17> Relieving factors: immobilization <Amandeep Benitez MD - Last Filed: 02/12/24 18:17> Exacerbating factors: movement <Amandeep Benitez MD - Last Filed: 02/12/24 18:17> Associated symptoms: denies other symptoms <Amandeep Benitez MD - Last Filed: 02/12/24 18:17> Related Data Home medications: Home Medications Medication Instructions Recorded Confirmed calcium carbonate (Antacid 750 mg PO Q2-3H PRN Acid Reflux 06/10/20 03/05/23 (calcium carbonate)) denosumab 60 mg/mL subcutaneous 60 mg subcut [id number] 06/10/20 03/05/23 syringe (Prolia) melatonin 10 mg tablet 20 mg PO HS 06/10/20 03/05/23 chlorthalidone 25 mg tablet 25 mg PO DAILY 03/05/23 03/05/23 cholecalciferol (vitamin D3) 125 125 mcg PO DAILY 03/05/23 03/05/23 mcg (5,000 unit) capsule losartan 50 mg tablet 50 mg PO HS 03/05/23 03/05/23 mirabegron 25 mg tablet,extended 25 mg PO DAILY 03/05/23 03/05/23 release 24 hr (Myrbetriq) <Rhonda Jacinto PA-C - Last Filed: 02/12/24 16:47> Allergies/adverse reactions: Allergies Allergy/AdvReac Type Severity Reaction Status Date / Time No Known Allergies Allergy Verified 03/20/23 06:16 <Rhonda Jacinto PA-C - Last Filed: 02/12/24 16:47> Review of Systems Review of Systems: All systems reviewed & are unremarkable except as noted in HPI and below <Amandeep Benitez MD - Last Filed: 02/12/24 18:17> Constitutional: Constitutional: Reports no additional constitutional complaints <Amandeep Benitez MD - Last Filed: 02/12/24 18:17> Eyes: Eyes: Reports no additional eye complaints <Amandeep Benitez MD - Last Filed: 02/12/24 18:17> ENT: Reports system reviewed and no additional complaints, except as documented <Amandeep Benitez MD - Last Filed: 02/12/24 18:17> Cardiovascular: Cardiovascular: Reports as per HPI <Amandeep Benitez MD - Last Filed: 02/12/24 18:17> Respiratory: Respiratory: Reports as per HPI <Amandeep Benitez MD - Last Filed: 02/12/24 18:17> Gastrointestinal: Gastrointestinal: Reports no additional gastrointestinal complaints <Amandeep Benitez MD - Last Filed: 02/12/24 18:17> Genitourinary: Genitourinary: Reports no additional female genitourinary complaints <Amandeep Benitez MD - Last Filed: 02/12/24 18:17> Musculoskeletal: Musculoskeletal: Reports no additional musculoskeletal complaints <Amandeep Benitez MD - Last Filed: 02/12/24 18:17> [facility] Past Medical History Medical History: Medical History Acute blood loss anemia Esophageal ring Esophageal stricture Gastric ulcer GERD with stricture History of esophageal dilatation Hypertension Melena Osteoporosis Spherocytosis status post splenectomy at the age of 4 <Rhonda Jacinto PA-C - Last Filed: 02/12/24 16:47> Surgical History Surgical History: Surgical History H/O arthroscopy of right knee H/O esophagogastroduodenoscopy H/O splenectomy at the age of 4 History of carpal tunnel release bilaterally History of colonoscopy <Rhonda Jacinto PA-C - Last Filed: 02/12/24 16:47> Family History Family History: Family History Mother Spherocytosis Pancreatic cancer Father Heart disease Sibling Spherocytosis <Rhonda Jacinto PA-C - Last Filed: 02/12/24 16:47> Social History Social History: Social History Social History: patient lives with her . She is a full code. 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 She may be drinks 1 drink a month. She does not use any marijuana tobacco or illicit drugs. She has 3 children. Smoking status: Never smoker Alcohol intake: current Alcohol use details: ONE DRINK PER MONTH Substance use: never Living arrangements: with family Gender identity (if verbalized by the patient): Female Spiritual care concerns: No <Rhonda Jacinto PA-C - Last Filed: 02/12/24 16:47> Exam Narrative: GENERAL: Well-appearing, well-nourished, and in no acute distress. HEAD: Normocephalic, atraumatic. EYES: PERRLA and EOMI. ENT: Nares clear, no rhinorrhea or epistaxis. Mucous membranes moist. NECK: Supple. CHEST: Clear to auscultation. No respiratory distress. Tender in the right lower intercostal HEART: Regular rate and rhythm. No murmur heard. Normal peripheral pulses. ABDOMEN: Soft, nontender, nondistended, normal active bowel sounds. EXTREMITIES: Normal range of motion. No edema. SKIN: Warm, dry, no rash. NEURO: No focal deficits. Alert and oriented x3. PSYCH: Normal mood and affect. <Amandeep Benitez MD - Last Filed: 02/12/24 18:17> Course Course Emergency Course: Notified patient about a EKG lab work, chest x-ray findings repeat most likely his musculoskeletal. Advised her to take pain medication as prescribed, follow with primary doctor <Amandeep Benitez MD - Last Filed: 02/12/24 18:17> Vital Signs Vital signs: Vital Signs Temperature 36.6 C 02/12/24 16:41 Pulse Rate 72 02/12/24 16:41 Respiratory Rate 16 02/12/24 16:41 Blood Pressure 150/96 H 02/12/24 16:41 Pulse Oximetry 97 02/12/24 16:41 Oxygen Delivery Room Air 02/12/24 16:41 Temperature 36.6 C 02/12/24 16:41 Pulse Rate 62 02/12/24 17:27 Respiratory Rate 17 02/12/24 17:27 Blood Pressure 131/77 02/12/24 17:27 Pulse Oximetry 97 02/12/24 17:27 Oxygen Delivery Room Air 02/12/24 16:41 <Rhonda Jacinto PA-C - Last Filed: 02/12/24 16:47> Vital Signs Temperature 36.6 C 02/12/24 16:41 Pulse Rate 72 02/12/24 16:41 Respiratory Rate 16 02/12/24 16:41 Blood Pressure 150/96 H 02/12/24 16:41 Pulse Oximetry 97 02/12/24 16:41 Oxygen Delivery Room Air 02/12/24 16:41 Temperature 36.6 C 02/12/24 16:41 Pulse Rate 62 02/12/24 17:27 Respiratory Rate 17 02/12/24 17:27 Blood Pressure 131/77 02/12/24 17:27 Pulse Oximetry 97 02/12/24 17:27 Oxygen Delivery Room Air 02/12/24 16:41 <Amandeep Benitez MD - Last Filed: 02/12/24 18:17> Medical Decision Making Medical Records Medical records reviewed: Yes I reviewed the external patient's medical records. <Amandeep Benitez MD - Last Filed: 02/12/24 18:17> Vital Signs Vital Signs: Vital Signs Temperature 36.6 C 02/12/24 16:41 Pulse Rate 72 02/12/24 16:41 Respiratory Rate 16 02/12/24 16:41 Blood Pressure 150/96 H 02/12/24 16:41 Pulse Oximetry 97 02/12/24 16:41 Oxygen Delivery Room Air 02/12/24 16:41 Temperature 36.6 C 02/12/24 16:41 Pulse Rate 62 02/12/24 17:27 Respiratory Rate 17 02/12/24 17:27 Blood Pressure 131/77 02/12/24 17:27 Pulse Oximetry 97 02/12/24 17:27 Oxygen Delivery Room Air 02/12/24 16:41 <Rhonda Jacinto PA-C - Last Filed: 02/12/24 16:47> Vital Signs Temperature 36.6 C 02/12/24 16:41 Pulse Rate 72 02/12/24 16:41 Respiratory Rate 16 02/12/24 16:41 Blood Pressure 150/96 H 02/12/24 16:41 Pulse Oximetry 97 02/12/24 16:41 Oxygen Delivery Room Air 02/12/24 16:41 Temperature 36.6 C 02/12/24 16:41 Pulse Rate 62 02/12/24 17:27 Respiratory Rate 17 02/12/24 17:27 Blood Pressure 131/77 02/12/24 17:27 Pulse Oximetry 97 02/12/24 17:27 Oxygen Delivery Room Air 02/12/24 16:41 <Amandeep Benitez MD - Last Filed: 02/12/24 18:17> Lab Data Lab results reviewed: Yes I reviewed the patient's lab results. <Amandeep Benitez MD - Last Filed: 02/12/24 18:17> Result diagrams: 02/12/24 16:49 02/12/24 16:49 <Rhonda Jacinto PA-C - Last Filed: 02/12/24 16:47> Labs: Lab Results 02/12/24 Range/Units 16:49 WBC 6.9 (4.5-10.0) K/mm3 RBC 3.82 L (4.2-5.4) M/mm3 Hgb 13.0 D (12.0-15.0) g/dL Hct 37.0 (37.0-47.0) % MCV 96.9 (80-100) fl MCH 34.0 (26-34) pg MCHC 35.1 (32-36) g/dl RDW 11.9 (11.5-14.5) % Plt Count 284 (150-375) k/mm3 MPV 11.1 H (7.4-10.4) fl Immature Gran % (Auto) 0.3 (0-0.5) % Neut % (Auto) 54.1 (45.5-73.1) % Lymph % (Auto) 31.2 (18.3-44.2) % [place] % (Auto) 10.5 H (2.6-8.5) % Eos % (Auto) 2.3 (0-4.4) % Baso % (Auto) 1.6 H (0.2-1.2) % Lymph # (Auto) 2.16 (0.9-3.2) K/mm3 [place] # (Auto) 0.7 H (0.1-0.6) K/mm3 Eos # (Auto) 0.2 (0-0.3) K/mm3 Baso # (Auto) 0.1 (0.0-0.1) K/mm3 Abs Immat Gran (auto) 0.02 (0.00-0.031) K/mm3 Absolute Neuts (auto) 3.7 (1.3-6.7) K/mm3 Absolute Nucleated RBC 0.000 (0.0-0.012) K/mm3 Nucleated RBC % 0.0 (0.0-0.2) % PT 13.2 (11.1-14.7) Seconds INR 1.0 APTT 30.9 (22.3-36.8) Seconds Sodium 139 (137-145) mmol/L Potassium 3.9 (3.4-5.0) mmol/L Chloride 109 H (98-107) mmol/L Carbon Dioxide 26 (22-30) mmol/L Anion Gap 4 (4-12) mmol/L BUN 20 H (7-17) mg/dL Creatinine 1.20 H (0.7-1.0) mg/dL Estim Creat Clear Calc 39 ml/min Estimated GFR 45 L (59 - ) Glucose 105 (65-110) mg/dL Calcium 9.2 (8.4-10.2) mg/dL Total Bilirubin 0.6 (0.2-1.3) mg/dL AST 27 (14-36) U/L ALT 18 (6-35) U/L Alkaline Phosphatase 101 (38-126) U/L Troponin I < 0.012 (0.000-0.034) ng/mL Total Protein 7.0 (6.3-8.2) g/dL Albumin 4.3 (3.5-5.1) g/dL Lipase 107 (23-300) U/L <Rhonda Jacinto PA-C - Last Filed: 02/12/24 16:47> Lab Results 02/12/24 Range/Units 16:49 WBC 6.9 (4.5-10.0) K/mm3 RBC 3.82 L (4.2-5.4) M/mm3 Hgb 13.0 D (12.0-15.0) g/dL Hct 37.0 (37.0-47.0) % MCV 96.9 (80-100) fl MCH 34.0 (26-34) pg MCHC 35.1 (32-36) g/dl RDW 11.9 (11.5-14.5) % Plt Count 284 (150-375) k/mm3 MPV 11.1 H (7.4-10.4) fl Immature Gran % (Auto) 0.3 (0-0.5) % Neut % (Auto) 54.1 (45.5-73.1) % Lymph % (Auto) 31.2 (18.3-44.2) % [place] % (Auto) 10.5 H (2.6-8.5) % Eos % (Auto) 2.3 (0-4.4) % Baso % (Auto) 1.6 H (0.2-1.2) % Lymph # (Auto) 2.16 (0.9-3.2) K/mm3 [place] # (Auto) 0.7 H (0.1-0.6) K/mm3 Eos # (Auto) 0.2 (0-0.3) K/mm3 Baso # (Auto) 0.1 (0.0-0.1) K/mm3 Abs Immat Gran (auto) 0.02 (0.00-0.031) K/mm3 Absolute Neuts (auto) 3.7 (1.3-6.7) K/mm3 Absolute Nucleated RBC 0.000 (0.0-0.012) K/mm3 Nucleated RBC % 0.0 (0.0-0.2) % PT 13.2 (11.1-14.7) Seconds INR 1.0 APTT 30.9 (22.3-36.8) Seconds Sodium 139 (137-145) mmol/L Potassium 3.9 (3.4-5.0) mmol/L Chloride 109 H (98-107) mmol/L Carbon Dioxide 26 (22-30) mmol/L Anion Gap 4 (4-12) mmol/L BUN 20 H (7-17) mg/dL Creatinine 1.20 H (0.7-1.0) mg/dL Estim Creat Clear Calc 39 ml/min Estimated GFR 45 L (59 - ) Glucose 105 (65-110) mg/dL Calcium 9.2 (8.4-10.2) mg/dL Total Bilirubin 0.6 (0.2-1.3) mg/dL AST 27 (14-36) U/L ALT 18 (6-35) U/L Alkaline Phosphatase 101 (38-126) U/L Troponin I < 0.012 (0.000-0.034) ng/mL Total Protein 7.0 (6.3-8.2) g/dL Albumin 4.3 (3.5-5.1) g/dL Lipase 107 (23-300) U/L <Amandeep Benitez MD - Last Filed: 02/12/24 18:17> Imaging Data Radiologist's impression: ITS Impressions Chest X-Ray 02/12/24 17:27 IMPRESSION: 1. No acute cardiopulmonary disease. <Amandeep Benitez MD - Last Filed: 02/12/24 18:17> ECG Data EKG #1: ECG completion date: 02/12/24 <Amandeep Benitez MD - Last Filed: 02/12/24 18:17> ECG completion time: 16:52 <Amandeep Benitez MD - Last Filed: 02/12/24 18:17> EKG Interpretation: normal rate (64), sinus rhythm, no ectopy, no ST changes, NL axis and no acute changes <Amandeep Benitez MD - Last Filed: 02/12/24 18:17> Discharge Plan Discharge Clinical Impression: Right-sided chest wall pain <Rhonda Jacinto PA-C - Last Filed: 02/12/24 16:47> Patient Disposition: Home, Self-Care <Rhonda Jacinto PA-C - Last Filed: 02/12/24 16:47> Condition: Stable <Rhonda Jacinto PA-C - Last Filed: 02/12/24 16:47> Instructions: Antibiotic Form, Chest Wall Pain (ED) <Rhonda Jacinto PA-C - Last Filed: 02/12/24 16:47> Additional Instructions: continue home medication , take pain meds as needed <Rhonda Jacinto PA-C - Last Filed: 02/12/24 16:47> Prescriptions: New hydrocodone-acetaminophen 5-325 mg tablet 1 tablet PO Q8H PRN (Reason: pain) Qty: 14 0RF No Action calcium carbonate [Antacid (calcium carbonate)] 320 mg calcium (750 mg) Tablet,Chewable 750 mg PO Q2-3H PRN (Reason: Acid Reflux) Prolia 60 mg/mL Syringe 60 mg SUBCUT [id number] melatonin 10 mg Tablet 20 mg PO HS pantoprazole 40 mg Tablet,Delayed Release (Dr/Ec) 40 mg PO Q12HR Qty: 60 2RF Patient Comments: TAKES QPM losartan 50 mg tablet 50 mg PO HS chlorthalidone 25 mg tablet 25 mg PO DAILY cholecalciferol (vitamin D3) 125 mcg (5,000 unit) Capsule 125 mcg PO DAILY Myrbetriq 25 mg Tablet Extended Release 24 Hr 25 mg PO DAILY <Rhonda Jacinto PA-C - Last Filed: 02/12/24 16:47> Follow-up/Referrals: PHYSICIAN NOT ON STAFF,NONSTAFF [Primary Care Provider] - <Rhonda Jacinto PA-C - Last Filed: 02/12/24 16:47> Time of Disposition: 18:17 <Rhonda Jacinto PA-C - Last Filed: 02/12/24 16:47> 18:17 <Amandeep Benitez MD - Last Filed: 02/12/24 18:17>
[2024-02-12 17:03] LABS: Basophils Absolute Auto 0.1 K/mm3 (0.0-0.1); Basophils Percent Auto 1.6 % (0.2-1.2); Eosinophils Absolute Auto 0.2 K/mm3 (0-0.3); Eosinophils Percent Auto 2.3 % (0-4.4); Immature Granulocyte Absolute 0.02 K/mm3 (0.00-0.031); Immature Granulocyte Percent A 0.3 % (0-0.5); Lymphocytes Absolute Auto 2.16 K/mm3 (0.9-3.2); Lymphocytes Percent Auto 31.2 % (18.3-44.2); Mean Corpuscular HGB Conc 35.1 g/dl (32-36); Mean Corpuscular Volume 96.9 fl (80-100); Mean Platelet Volume 11.1 fl (7.4-10.4); Monocytes Absolute Auto 0.7 K/mm3 (0.1-0.6); Monocytes Percent Auto 10.5 % (2.6-8.5); Neutrophils Absolute Auto 3.7 K/mm3 (1.3-6.7); Neutrophils Percent Auto 54.1 % (45.5-73.1); Platelet Count Result 284 k/mm3 (150-375); Red Blood Count 3.82 M/mm3 (4.2-5.4); Red Cell Distribution Width 11.9 % (11.5-14.5); White Blood Count 6.9 K/mm3 (4.5-10.0)
[2024-02-12 17:14] LABS: Prothrombin Time 13.2 Seconds (11.1-14.7)
[2024-02-12 17:15] LABS: Partial Thromboplastin Time 30.9 Seconds (22.3-36.8)
[2024-02-12 17:17] LABS: Alanine Aminotransferase 18 U/L (6-35); Albumin Level 4.3 g/dL (3.5-5.1); Alkaline Phosphatase 101 U/L (38-126); Anion Gap 4 mmol/L (4-12); Aspartate Amino Transferase 27 U/L (14-36); Bilirubin,Total 0.6 mg/dL (0.2-1.3); Blood Urea Nitrogen 20 mg/dL (7-17); Calcium 9.2 mg/dL (8.4-10.2); Carbon Dioxide 26 mmol/L (22-30); Chloride 109 mmol/L (98-107); Estimated CRCL calculation 39 ml/min; Estimated Glomerular Filt Rate 45; Glucose 105 mg/dL (65-110); Lipase 107 U/L (23-300); Potassium 3.9 mmol/L (3.4-5.0); Sodium 139 mmol/L (137-145)
[2024-02-12 17:27] VITALS: BP 131/77; PULSE 62; RESP 17; O2SAT 97
[2024-02-12 17:29] LABS: Troponin I < 0.012 ng/mL (0.000-0.034)
== END 2024-02-12 19:08 | disposition home or self-care (01) ==
LOC: ANHED 18:33
PROVIDERS: Physician Assistant; Emergency Provider Family Medicine
DX: R07.89 Other chest pain (principal); I10 Essential (primary) hypertension; K21.9 Gastro-esophageal reflux disease without esophagitis; M81.0 Age-related osteoporosis without current pathological fracture; Z90.81 Acquired absence of spleen; R94.31 Abnormal electrocardiogram [ECG] [EKG]
CPT/HCPCS: 36415; 71046; 80053; 83690; 84484; 85025; 85610; 85730; 93005; 99284

== ENCOUNTER 2024-11-03 09:42 | Outpatient (CLI) | payer MEDICARE, SELFPAY ==
--- NOTE | ~2024-11-03 | XR_ITS ---
XR abdomen/kub 1V 11/03/2024 10:00 Indication: Renal stones Procedure: KUB Comparison: 11/03/2023 Findings: There are left renal stones including a probable stone in the renal pelvis. There is scolio sis. There are pelvic phleboliths which are unchanged from prior study. Nonobstructive bowel gas concetta rosa. Impression: 1: Left nephrolithiasis. Reviewed, dictated and finalized at location B. 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
== END 2024-11-03 09:43 | disposition home or self-care (01) ==
PROVIDERS: Visit Provider Urology
DX: N20.0 Calculus of kidney (principal)
CPT/HCPCS: 74018

== ENCOUNTER 2025-09-07 14:47 | Emergency (ER) | payer MEDICARE, SELFPAY ==
[2025-09-07] VITALS (33 sets, daily range): BP systolic 130–172; BP diastolic 63–116; PULSE 73–95; RESP 12–26; TEMP 36.6; O2SAT 94–99
--- NOTE | ~2025-09-07 | XR_ITS ---
EXAMINATION: XR chest 1V portable COMPARISON: No comparisons available. HISTORY: sudden onset of confusion FINDINGS: The lungs are clear, no effusion. No pneumothorax. Heart is normal size. Mediastinal and hilar contours are within normal limits. Bony thorax no acute abnormality. Miscellaneous: None Impression: No acute cardiopulmonary abnormality. Reviewed, dictated and finalized at location P. IFF'S OFFICER Impression: No acute cardiopulmonary abnormality.
--- NOTE | ~2025-09-07 | CT_ITS ---
EXAMINATION: CTA BRAIN/CAROTID DATE: 09/07/2025 15:49 INDICATION: Altered mental status TECHNIQUE: Computed tomographic angiography (CTA) of the head and neck was performed with 100 mL Omnipaque-350 intravenous contrast. Multiplanar reconstructions and maximum intensity projection 3D-reconstructions of the carotid arteries and of the intracranial arteries were created by the technologist on a separate workstation. Automated exposure control and iterative reconstruction technique were employed.The dose-length product was 1038.48 mGy-cm. COMPARISON: Head CT dated 09/07/2025 FINDINGS: Intracranial arteries Vertebral arteries are codominant. There is no hemodynamically significant stenosis in the vertebral, basilar and internal carotid arteries. Both A1 and P1 segments are patent. The right P1 segment is diminutive with majority of flow to the right posterior cerebral artery supplied from the right internal carotid artery via a patent right posterior communicating artery. There is also a patent anterior communicating artery. There are no aneurysms identified. Cerebral arterial arborization appears symmetric. No abnormally enhancing brain lesions on the postcontrast imaging. Carotid arteries: The aortic arch and the great vessels arising from the arch are normal in caliber with no dissection or hemodynamically significant stenosis. There is no evident atherosclerotic plaque with 0% stenosis of the right and left carotid bulbs relative to normal distal artery lumen diameter (NASCET criteria). Mild emphysema the visualized upper lungs. Cervical soft tissues are unremarkable. Severe cervical spondylosis. IMPRESSION: 1. No evident atherosclerotic plaque with 0% stenosis of the right and left carotid bulbs relative to normal distal artery lumen diameter (NASCET criteria). 2. Unremarkable cerebral CT angiogram with no hemodynamically significant stenosis, thrombosis or aneurysm. Reviewed, dictated and finalized at location A. S LABORER IMPRESSION: 1. No evident atherosclerotic plaque with 0% stenosis of the right and left car otid bulbs relative to normal distal artery lumen diameter (NASCET criteria). 2. Unremarkable cerebral CT angiogram with no hemodynamically significant steno sis, thrombosis or aneurysm.
--- NOTE | ~2025-09-07 | CT_ITS ---
EXAMINATION: CT brain rio masterson, 09/07/2025 14:55 ASSISTANT FRONT END MANAGER HISTORY: sudden onset of confusion COMPARISON: No comparisons available. Technique: Axial images obtained of the brain without contrast. One or more of the following dose reduction techniques were used: automated exposure control, adjustment of the mA and/or kV according to patient size, use of iterative reconstruction technique. Findings: No acute infarct or parenchymal hemorrhage. No abnormal mass or mass effect. No midline shift. No extra-axial fluid collections. No hydrocephalus. Mastoid air cells unremarkable. Severe chronic appearing right maxillary sinusitis with underlying polyp formation is speculated. No acute fracture. No significant facial or scalp soft tissue swelling evident. No radiopaque foreign body is seen. Impression: 1.No acute intracranial abnormality. Reviewed, dictated and finalized at location P. STANT FRONT END MANAGER Impression: 1.No acute intracranial abnormality.
--- OUTSIDE RECORDS SUMMARY | 2025-09-07 14:59 | XMS_ITS | Clinical Summary ---
Author Organization [facility] C Address [address] [place] [address] Care Team Providers Care Raftsman Name Role Phone Gutierrez Torres MD Primary Care Provider [phone] Allergies No known active allergies Medications calcium carbonate (TUMS) 500 mg calcium (200 mg of elemental calcium) chewable tablet Take 1 tablet/chew tab (500 mg total) by mouth as needed Active melatonin 10 mg capsule Take 1 each by mouth nightly as needed (gummy) Active pantoprazole DR (PROTONIX) 40 mg EC tablet Take 1 tablet (40 mg total) by mouth daily Active losartan (COZAAR) 50 mg tablet 07/30/2022 Active cholecalciferol (Vitamin D3) 400 unit capsule 125 mcg Active Gemtesa 75 mg tablet Take 1 tablet by mouth daily 04/02/2023 Active zoledronic acid 4 mg/5 mL injection Infuse into a venous catheter Patient doesn't know the dosage. Receives this once/year per infusion Active meloxicam (MOBIC) 7.5 mg tablet Take 1 tablet (7.5 mg total) by mouth daily 30 tablet 3 10/06/2024 10/06/20 25 Active Active Problems Problem Noted Date Diagnosed Date Dysphagia 04/15/2024 Gastroesophageal reflux disease 08/12/2022 Intraductal papilloma of breast, left 07/15/2022 Primary osteoarthritis of left knee 05/31/2021 Sensation of fullness in left ear 11/09/2017 Tinnitus 11/09/2017 Hypercalciuria 01/11/2014 Hyperparathyroidism 10/10/2013 Hypertension 10/10/2013 Osteoporosis 10/10/2013 Surgical History Surgery Date Site/Laterality Comments [place] ARTHROSCOPY KNEE W/MENISC US RPR MEDIAL/LATERAL Left Knee Arthroscopy With Medial Meniscus Repair - (Added by TW Conv) KS SPLENECTOMY TOTAL SEPARAT E PROCEDURE Splenectomy - (Added by TW Conv) NEUROPLASTY / TRANSPOSITION MEDIAN NERVE AT CARPAL TUNNEL BILATERAL COLONOSCOPY 03/17/2019 FINGER SURGERY Right Middle and Ring Finger fusion UPPER GASTROINTESTINAL ENDOSCOPY Medical History Medical History Date Comments Personal history of other di seases of the circulatory system History of hypertension - (A dded by TW Conv) Anxiety disorder Anxiety - (Adde d by TW Conv) Personal history of other di seases of the digestive system History of gastroesophageal reflux (GERD) - (Added by TW Conv) Claustrophobia Hypertension GERD (gastroesophageal reflux disease) Anxiety Tinnitus Hiatal hernia Family History Medical History Relation Name Comments Pancreatic cancer Mother Colon cancer Neg Hx Esophageal cancer Neg Hx Rectal cancer Neg Hx Stomach cancer Neg Hx Relation Name Status Comments Mother Social History Tobacco Use Types Packs/Day Years Used Date Smoking Tobacco: Never Smokeless Tobacco: Never Tobacco Cessation:Counseling Given: Not Answered Alcohol Use Standard Drinks/Week Comments Yes 0 (1 standard drink = 0.6 oz pur e alcohol) socially, 2 drinks/ month AUDIT-C Answer Date Recorded Q1: How often do you have a drink containing alc ohol? 2-4 times a month 06/07/2024 Q2: How many drinks containi ng alcohol do you have on a typical day when you are drinking? 1 or 2 06/07/2024 Q3: How often do you have si x or more drinks on one occasion? Never 06/07/2024 Personal Safety Answer Date Recorded Have you ever been in or are you currently in a harmful physical or emotional relationship or is someone making you feel afraid or unsafe? Denies 06/07/2024 Comments No Sex and Gender Information Value Date Recorded Sex Assigned at Not on file Legal Sex Female 8:29 AM CHIEF WARDEN Gender Identity Female 05/31/2021 10:39 AM CDT Sexual Orientation Straight 05/31/2021 10 :39 AM CDT Last Filed Vital Signs Vital Sign Reading Time Taken Comments Blood Pressure 123/70 06/07/2024 12:00 PM CDT Pulse 69 06/07/2024 12:15 PM CDT Temperature 36.2 C (97.2 F) 06/07/2024 11:50 AM CDT Respiratory Rate 15 06/07/2024 12:15 PM CDT Oxygen Saturation 97% 06/07/2024 12:15 PM CDT Inhaled Oxygen Concentration - - Weight 74.8 kg (165 lb) 10/06/2024 10:56 AM CHIEF WARDEN Height 160 cm (5' 3) 10/06/2024 10:56 AM CHIEF WARDEN Body Mass Index 29.23 10/06/2024 10:56 AM CHIEF WARDEN Plan of Treatment Health Maintenance Due Date Last Done Comments Depression Screening 1955 Hepatitis C Screening 1955 Hepatitis B Screening 1972 Pneumococcal vaccine 65+ (2 of 2 - PCV20 or PCV21) 09/07/2016 09/07/2015 Well Visit 65+ 2019 Fall Risk Assessment 06/07/2025 06/07/2024 Influenza Vaccine (#1) 2025 09/07/2015, 2013 Breast Cancer Screening-Mammogram 07/26/2025 024 Osteoporosis Screening-Bone Density Scan 09/29/2025 09/29/2023, 09/29/2023, 09/12/2022, Additional history exists DTaP/Tdap/Td Vaccine (2 - Td or Tdap) 02/21/2026 02/22/2016 Colon Cancer Screening-Colonoscopy 03/31/2034 03/31/2024, 03/17/2019 Zoster Vaccine Completed 10/30/2020, 0810/2019, 09/07/2015 Colon Cancer Screening-CT Colonography Discontinued 03/31/2024, 03/17/2019 Colon Cancer Screening-DNA Stool Discontinued 03/31/20 24, 03/17/2019 Colon Cancer Screening-FIT Discontinued 03/31/2024, Colon Cancer Screening-Sigmoidoscopy Discontinued 03/31/2024, 03/17/2019 Procedures Procedure Name Priority Date/Time Associated Diagnosis Comments COLONOSCOPY 03/31/2024 3:31 PM CDT from Last 3 Months or Most Recently Relevant to Health Maintenance Results * Colonoscopy (03/31/2024 3:31 PM CDT) Anatomical Region Laterality Modality Other Narrative Procedure Note Alvarez Helms MD - 03/31/2024 3:31 PM CDT [facility] Endoscopy Lab Patient Name: Melissa Ambriz Procedure Date: 03/31/2024 3:31 PM Date of : 1955 Admit Type: Outpatient Age: 68 Gender: Female Note Status: Finalized Attending MD: Alvarez Helms M.D. Procedure Date: 03/31/2024 Procedure: Colonoscopy Indications: High risk colon cancer surveillance: Personalhistory of colonic polyps Providers: Alvarez Helms M.D., Maki Henderson, CLUB FORMER (Anesthesia Staff), Frances Greco RN, Cristina, Loss Prevention Lead Referring MD: Gutierrez Torres M.D. Medicines: Monitored Anesthesia Care Complications: No immediate complications. Estimated Blood Loss: Estimated blood loss: none. Procedure: Pre-Anesthesia Assessment: - Prior to the procedure, a History and Physicalwas performed, and patient medications, allergies and sensitivities were reviewed. The patient'stolerance of previous anesthesia was reviewed. - The risks and benefits of the procedure and the sedation options and risks were discussed with the patient. All questions were answered and informed consent was obtained. - ASA Grade Assessment: II - A patient with mild systemic disease. After I obtained informed consent, the scope was passed under direct vision. Throughout theprocedure, the patient's blood pressure, pulse, and oxygen saturations were monitored continuously. The scopewas passed under direct vision. The Colonoscope was introduced through the anus and advanced to the the cecum, identified by appendiceal orifice andileocecal valve. The colonoscopy was performed withdifficulty due to significant looping. Successful completionof the procedure was aided by applying abdominal pressure. The patient tolerated the procedure well. The quality of the bowel preparation was evaluated using the BBPS ([place] Bowel Preparation Scale)with scores of: Right Colon = 3, Transverse Colon = 3and Left Colon = 3 (entire mucosa seen well with no residual staining, small fragments of stool oropaque liquid). The total BBPS score equals 9. The bowel preparation used was GoLYTELY via split dose instruction. The quality of the bowel preparationwas good. Bowel prep was administered using a splitdose. Findings: A 3 mm polyp was found in the rectum. The polyp was sessile. Thepolyp was removed with a jumbo cold forceps. Resection and retrieval were complete. Scattered small and large-mouthed diverticula were found in thesigmoid colon. The colon (entire examined portion) revealed moderately excessive looping. Impression: - One 3 mm polyp in the rectum, removed with ajumbo cold forceps. Resected and retrieved. - Diverticulosis in the sigmoid colon. - There was significant looping of the colon. Recommendation: - Repeat colonoscopy in 5 years for surveillance. - Return to my office in 3 weeks. Procedure Code(s): --- Professional --- 79788, Colonoscopy, flexible; with biopsy, singleor multiple Diagnosis Code(s): --- Professional --- Z86.010, Personal history of colonic polyps D12.8, Benign neoplasm of rectum K57.30, Diverticulosis of large intestine without perforation or abscess without bleeding CPT copyright 2020 [employer]. All rights reserved. The codes documented in this report are preliminary and upon intensive care unit registered nurse reviewmay be revised to meet current compliance requirements. This report is electronically signed by Dr Lorelei Helms Alvarez Helms M.D. 03/31/2024 4:09:49 PM This report has been electronically signed by the physician. Number of Addenda: 0 Note Initiated On: 03/31/2024 3:31 PM Alvarez Helms MD ENDOSCOPY PROCEDURES Edite d Result - Final from Last 3 Months or Most Recently Relevant to Health Maintenance [place] [address] [employer] MEDICARE [id number] [place] [address] Advance Directives For more information, please contact: [phone] * Full Code (Latest Code Status on File) Date Activated Date Inactivated Comments 06/07/2024 10:49 AM 06/07/2024 4:25 PM * Full Code Date Activated Date Inactivated Comments 04/18/2024 12:39 PM 04/18/2024 6:28 PM * Full Code Date Activated Date Inactivated Comments 04/09/2023 9:43 AM 04/09/2023 2:27 PM * Full Code Date Activated Date Inactivated Comments 07/27/2020 9:54 AM 07/27/2020 4:18 PM * Full Code Date Activated Date Inactivated Comments 05/05/2019 7:38 AM 05/05/2019 5:55 PM Care Teams Raftsman Relationship Specialty Start Date End Date Gutierrez Torres MD PCP - General 10/06/17
--- OUTSIDE RECORDS SUMMARY | 2025-09-07 14:59 | XMS_ITS | Clinical Summary ---
Author Organization [facility] Address [address] [place] [address] Care Team Providers Care Master Fisher Name Role Phone Gutierrez Torres MD Primary Care Provider [phone] Source Comments [facility],non-owned Affiliates and Associated Physician Practices is amultiple site organization consisting of ambulatory clinics and hospital sitesin [place], [place], [place] and [place]. This disclosure is being madepursuant to the Care Everywhere program and may not contain all information available regarding this patient. Last updated 18.[facility] [employer] Allergies No known active allergies Medications * Be aware that medications may not be up to date on this document. Alwaysverify current medications with the patient. melatonin 10 MG capsule Take 1 (one) capsule by mouth once daily Active denosumab (PROLIA) 60 MG/ML SC injection Inject 1 mL subcutaneously as directed Active vitamin D3 (Cholecalciferol) 125 MCG (5000 UT) capsule Take 1 (one) capsule by mouth once daily Active Gemtesa 75 MG TABS Take 1 (one) tablet by mouth once daily 023 Active pantoprazole EC (Protonix) 40 MG tablet Take 1 (one) tablet by mouth once daily Active fluticasone propionate (Flonase) 50 MCG/ACT nasal spray [place] 2 (two) sprays into each nostril once daily 48 g 4 024 Active azelastine (Astelin) 0.1 % nasal spray [place] 1 (one) spray into each nostril 2 times daily 90 mL 4 024 Active loratadine (Claritin) 10 MG tablet Take 1 (one) tablet by mouth once daily 90 tablet 4 024 Active losartan - hydroCHLOROthiazide (Hyzaar) 50-12.5 MG tablet Take 1 (one) tablet by mouth once daily 025 Active amLODIPine (Norvasc) 10 MG tablet Take 1 (one) tablet by mouth once daily 90 tablet 4 025 Active Active Problems Problem Noted Date Diagnosed Date Pure hypercholesterolemia 12/19/2024 Overweight 12/19/2024 Premature atrial complexes 05/09/2024 Essential hypertension 11/13/2022 High blood pressure 11/13/2022 Acid reflux 08/12/2022 Intraductal papilloma of breast, left 07/15/2022 Primary osteoarthritis of left knee 05/31/2021 Sensation of fullness in left ear 11/09/2017 Tinnitus 11/09/2017 Hypercalciuria 01/11/2014 Hyperparathyroidism 10/10/2013 Hypertension 10/10/2013 Osteoporosis 10/10/2013 Immunizations Immunization Administration Dates Next Due [employer] BIVALENT 12Y+ 30mcg/0.3ML 3,08/03/2022 [employer] primary Monovalent 12+ yr 0.3ml 06/2022 INFLUENZA VACCINE, HIGH-DOSE , QUADR. (FLUZONE HIGH-DOSE QUADRIVALENT; 65Y+), 0.7 ML (HD-IIV4) 07/05/2021 ZOSTER VACCINE, LIVE 09/07/2015 Zoster Hzv Vacc Recombinant Inj Im 10/30/2020, Social History Tobacco Use Types Packs/Day Years Used Date Smoking Tobacco: Never Smokeless Tobacco: Never Tobacco Cessation:Counseling Given: Not Answered Alcohol Use Standard Drinks/Week Comments Yes 0 (1 standard drink = 0.6 oz pur e alcohol) Comments Unknown Sex and Gender Information Value Date Recorded Sex Assigned at Not on file Legal Sex Female 6:13 AM DEVELOPMENT ENG Gender Identity Not on file Sexual Orientation Not on file Last Filed Vital Signs Vital Sign Reading Time Taken Comments Blood Pressure 128/86 12/19/2024 8:37 AM DEVELOPMENT ENG Pulse 80 12/19/2024 8:37 AM DEVELOPMENT ENG Temperature 36.7 C (98.1 F) 11/07/2021 4:07 PM DEVELOPMENT ENG Respiratory Rate - - Oxygen Saturation 96% 12/19/2024 8:37 AM DEVELOPMENT ENG Inhaled Oxygen Concentration - - Weight 75.6 kg (166 lb 9.6 oz) 12/19/2024 8:37 AM DEVELOPMENT ENG Height 162.6 cm (5' 4.02) 12/19/2024 8:37 AM CS T Body Mass Index 28.58 12/19/2024 8:37 AM DEVELOPMENT ENG Plan of Treatment Health Maintenance Due Date Last Done Comments COLOGUARD (AGES 45-75) - COLON CA SCREENING 1955 CT COLONOGRAPHY - COLON CA SCREENING 1955 FIT - COLON CA SCREENING 1955 FLEX SIG - COLON CA SCREENING 1955 LIPID TESTING 1955 HEPATITIS C SCREENING 04/07/1972 DTAP/TDAP/TD VACCINES (1 - Tdap) 1973 PNEUMOCOCCAL VACCINE 50+ (1 of 1 - PCV) 2004 SCREENING FOR DIABETES 05/16/2021 DEPRESSION SCREENING 10/26/2024 MEDICARE AWV CALENDAR YEAR 2024 COVID-19 VACCINE (2024- season) 2025 02/25/2023, 08/03/2022, 08/03/2022, Additional history exists INFLUENZA VACCINE (#1) 2025 07/05/2021 MAMMOGRAM 07/26/2026 07/26/2024, 10/2023, 07/21/2023 Respiratory Syncytial Virus (RSV) Vaccine Pt: or over 60 yrs (1 - 1-dose 75+ series) 2029 COLON MONITORING 03/31/2034 03/31/2024, 03/17/2019 COLONOSCOPY - COLON CA SCREENING 03/31/2034 03/31/2024, 03/17/2019 Colorectal Cancer Screening 03/31/2034 ZOSTER VACCINE Completed 10/30/2020, 05/28, 09/07/2015 BONE DENSITY TESTING Completed 11/29/2024, 09/29/2023, 09/12/2022, Additional history exists HEPATITIS B VACCINE Aged Out No longe r eligible based on patient's age to complete this topic HIB VACCINE Aged Out No longer eligi ble based on patient's age to complete this topic HPV VACCINE Aged Out No longer eligi ble based on patient's age to complete this topic MENINGOCOCCAL (Group B) VACCINE SHARED DECISION-MAKING Aged Out No longer eligible based on patient's age to complete this topic MENINGOCOCCAL GROUPS A/C/Y/W VACCINE Aged Out No longer eligible based on patient's age to complete this topic Insurance AETNA AETNA MEDICARE ADV Care Teams Master Fisher Relationship Specialty Start Date End Date Gutierrez Torres MD [address] [place] [address] [facility] - General 06/12/20
--- OUTSIDE RECORDS SUMMARY | 2025-09-07 14:59 | XMS_ITS | Encounter Summary ---
Author Organization [facility] Address [address] [place] [address] Care Team Providers Care Venetian Blind Worker Name Role Phone Gutierrez Torres MD Primary Care Provider [phone] Encounter Details Date Type Department Care Team (Late st Contact Info) Description 07/16/2025 Results Follow-Up [facility] Endocrinology [address] [place] [address] Kita Lloyd MD [address] [place] [address] PTH INTACT, BASIC METABOLIC PANEL, VITAMIN D 25 HYDROXY Social History Tobacco Use Types Packs/Day Years Used Date Smoking Tobacco: Never Smokeless Tobacco: Never Alcohol Use Standard Drinks/Week Comments Yes 0 (1 standard drink = 0.6 oz pur e alcohol) rarely Comments No Sex and Gender Information Value Date Recorded Sex Assigned at Not on file Legal Sex Female 5:20 AM TEMPLATE STORAGE CLERK Gender Identity Not on file Sexual Orientation Not on file documented as of this encounter Plan of Treatment Upcoming Encounters Date Type Department Care Team (Late st Contact Info) Description 11/21/2025 10:45 AM TEMPLATE STORAGE CLERK Office Visit [facility] JACKHAMMER OPERATOR - Medical [place] [address] [place] [address] Kimberlee Wakefield MD [address] [place] [address] documented as of this encounter Visit Diagnoses Not on filedocumented in this encounter Care Teams Venetian Blind Worker Relationship Specialty Start Date End Date Gutierrez Torres MD PCP - General Emergency Medicine 10/30/16 documented as of this encounter
--- OUTSIDE RECORDS SUMMARY | 2025-09-07 14:59 | XMS_ITS | Encounter Summary ---
Author Organization [facility] Address [address] [place] [address] Care Team Providers Care Rail Signal Designer Name Role Phone Gutierrez Torres MD Primary Care Provider [phone] Encounter Details Date Type Department Care Team (Late st Contact Info) Description 01/04/2001 Outpatient Historical [facility] MRI DEPT Luis Angel Bravo MD [address] [place] [address] [address] [place] [address] Unspecified ptosis of eyelid (Primary Dx) Social History Tobacco Use Types Packs/Day Years Used Date Smoking Tobacco: Never Assessed Comments Unknown Sex and Gender Information Value Date Recorded Sex Assigned at Not on file Legal Sex Female 5:20 AM CORNCOB PIPE MANUFACTURING SUPERVISOR Gender Identity Not on file Sexual Orientation Not on file documented as of this encounter Plan of Treatment Upcoming Encounters Date Type Department Care Team (Late st Contact Info) Description 11/21/2025 10:45 AM CORNCOB PIPE MANUFACTURING SUPERVISOR Office Visit [facility] LIGHT REPAIRER HELPER - Medical [place] [address] [facility] [address] [address] [place] [address] Kimberlee Wakefield MD [address] [place] [address] documented as of this encounter Visit Diagnoses Diagnosis Unspecified ptosis of eyelid- Primary documented in this encounter Care Teams Rail Signal Designer Relationship Specialty Start Date End Date Gutierrez Torres MD PCP - General Emergency Medicine 10/30/16 documented as of this encounter
--- OUTSIDE RECORDS SUMMARY | 2025-09-07 14:59 | XMS_ITS | Encounter Summary ---
Author Organization [facility] Address [address] [place] [address] Care Team Providers Care Supervisor Looping Name Role Phone Gutierrez Torres MD Primary Care Provider [phone] Encounter Details Date Type Department Care Team (Latest Contact Info) Description 12/22/2000 Outpatient Historical [facility] Luis Angel More MD [address] [place] [address] [address] [place] [address] Unspecified disorder of autonomic nervous system (Primary Dx) Social History Tobacco Use Types Packs/Day Years Used Date Smoking Tobacco: Never Assessed Comments Unknown Sex and Gender Information Value Date Recorded Sex Assigned at Not on file Legal Sex Female 5:20 AM HOSPICE REGISTERED NURSE Gender Identity Not on file Sexual Orientation Not on file documented as of this encounter Plan of Treatment Upcoming Encounters Date Type Department Care Team (Late st Contact Info) Description 11/21/2025 10:45 AM HOSPICE REGISTERED NURSE Office Visit [facility] APPLICATION DEVELOPMENT LIAISON - Medical [place] [address] [facility] [address] [place] [address] Kimberlee Wakefield MD [address] [place] [address] documented as of this encounter Visit Diagnoses Diagnosis Unspecified disorder of autonomic nervous system- Primary documented in this encounter Care Teams Supervisor Looping Relationship Specialty Start Date End Date Gutierrez Torres MD PCP - General Emergency Medicine 10/30/16 documented as of this encounter
--- OUTSIDE RECORDS SUMMARY | 2025-09-07 14:59 | XMS_ITS | Clinical Summary ---
Author Organization [employer] Address [address] [place] [address] Care Team Providers Care Mechanical Pencils Assembler Name Role Phone Gutierrez Torres MD Primary Care Provider [phone] Allergies No known active allergies Medications pantoprazole (PROTONIX) 40 mg Tablet, Delayed Release (E.C.) Take 40 mg by mouth daily. 0 Active ergocalciferol (VITAMIN D2) 50,000 unit capsule Take 50,000 Units by mouth every 7 days. 8 Active melatonin 10 mg Capsule Take 1 Each by mouth. Active triamcinolone acetonide (KENALOG) 0.1 % Cream APPLY 1 APPLICATION TOPICALLY EVERY DAY AT BEDTIME TO HANDS 9 Active calcium as carbonate (CALCI-CHEW) 1,250 mg (500 mg elemental) Tablet, Chewable Take 1 Tablet by mouth daily. Active hydrocortisone (Proctozone-HC) 2.5 % cream with perineal applicator Insert by rectum 2 times daily. 28 Gram 2 Active Additional Information Patient not taking.Reported on 11/18/2024 losartan (COZAAR) 50 mg tablet 2 Active cholecalciferol , Vitamin D3, 125 mcg (5,000 unit) Capsule Take 5,000 Units by mouth daily. Active zoledronic dvvu-dueidhbJ-f ater (RECLAST) 5 mg/100 mL Piggyback Inject 5 mg by intravenous injection one time only. Active clobetasoL (TEMOVATE) 0.05 % Solution APPLY TO SCALP TWICE A DAY NEEDED 3 Active Gemtesa 75 mg Tablet 3 Active telmisartan (MICARDIS) 20 mg Tablet Take 20 mg by mouth daily. Active oxyBUTYnin (DITROPAN) 5 mg tablet Take 5 mg by mouth daily. Active omega-3 fatty acids-fish oil 300-1,000 mg Capsule Take by mouth daily. Active Active Problems Problem Noted Date Diagnosed Date Intraductal papilloma of breast, left 07/15/2022 Hypercalciuria 01/11/2014 Hyperparathyroidism 10/10/2013 Hypertension 10/10/2013 Osteoporosis 10/10/2013 Encounters Date Type Department Care Team Description 08/16/2025 External Device Data STL ABSTRACTION Provider, Abstract 08/15/2025 External Device Data STL ABSTRACTION Provider, Abstract 08/09/2025 Orders Only [facility] STAVE LOG CUT OFF SAW OPERATOR - Medical [place] [address] [facility] [address] [place] [address] Kimberlee Wakefield MD 07/18/2025 External Device Data STL ABSTRACTION Provider, Abstract 07/16/2025 Results Follow-Up [facility] Endocrinology [address] [place] [address] Kita Lloyd MD PTH INTACT, BASIC METABOLIC PANEL, VITAMIN D 25 HYDROXY 07/14/2025 11:15 AM CDT Office Visit [facility] Endocrinology [address] [place] [address] Kita Lloyd MD Postmenopausal osteoporosis (Primary Dx); Hypovitaminosis D 07/11/2025 External Device Data STL ABSTRACTION Provider, Abstract from Last 3 Months Immunizations Immunization Administration Dates Next Due (Pfizer Bivalent)(12 Yr Up) COVID-19 Vaccine - Emergency Use Authorization, MRNA, Lnp-S(Pf) 30 Mcg/0.3 Ml Susp 02/25/2023,08/03/2022 Family History Medical History Relation Name Comments Healthy Brother 1 Healthy Brother 2 Other Father 92 covid Heart Disease Maternal Grandmother Hypertension Mother 86 Pancreatic Cancer Mother 86 Thyroid Disease Mother 86 Healthy Sister Thyroid Disease Sister Breast Cancer Neg Hx Ovarian Cancer Neg Hx Relation Name Status Comments Brother 1 Alive Brother 2 Alive Daughter Alive Father 92 Maternal Grandfather Maternal Grandmother Mother 86 Paternal Grandfather Paternal Grandmother Sister Alive Son 1 Alive Son 2 Alive Social History Tobacco Use Types Packs/Day Years Used Date Smoking Tobacco: Never Smokeless Tobacco: Never Tobacco Cessation:Counseling Given: Not Answered Alcohol Use Standard Drinks/Week Comments Yes 0 (1 standard drink = 0.6 oz pur e alcohol) rarely Comments No Sex and Gender Information Value Date Recorded Sex Assigned at Not on file Legal Sex Female 5:20 AM PROJECT CONSTRUCTION ASSISTANT MANAGER Gender Identity Not on file Sexual Orientation Not on file Last Filed Vital Signs Vital Sign Reading Time Taken Comments Blood Pressure 124/76 07/14/2025 11:22 AM CDT Pulse 60 07/14/2025 11:22 AM CDT Temperature 36.1 C (97 F) 07/27/2023 11:38 AM CDT Respiratory Rate 16 07/27/2023 11:38 AM CDT Oxygen Saturation 94% 07/14/2025 11:22 AM CDT Inhaled Oxygen Concentration - - Weight 70.8 kg (156 lb) 07/14/2025 11:22 AM CDT Height 160 cm (5' 3) 07/14/2025 11:22 AM CDT Body Mass Index 27.63 07/14/2025 11:22 AM CDT Plan of Treatment Upcoming Encounters Date Type Department Care Team (Late st Contact Info) Description 11/21/2025 10:45 AM PROJECT CONSTRUCTION ASSISTANT MANAGER Office Visit [facility] STAVE LOG CUT OFF SAW OPERATOR - Medical [place] [address] IN[address] [facility] [address] [place] [address] Kimberlee Wakefield MD [address] [place] [phone] Health Maintenance Due Date Last Done Comments DTAP/TDAP/TD VACCINES (1 - Tdap) 1973 PNEUMOCOCCAL VACCINE 50+ YEA RS (1 of 2 - PCV) 1973 FIT-DNA Q 3 years 1999 Flex Sig/CT Colonography Q 5 years 1999 FIT/FOBT Q 1 year 07/18/2021 07/18/2020 INFLUENZA VACCINE (#1) 2025 07/05/2021 COVID-19 Vaccine (2024-2 6 season) 2025 02/25/2023, 08/03/2022 BREAST CANCER SCREENING 08/08/2026 08/08/20 25, 07/26/2024, 07/26/2024, Additional history exists RSV VACCINE (60+ or ) (1 - 1-dose 75+ series) 2029 OSTEOPOROSIS SCREENING 11/29/2029 , 09/29/2023, 09/12/2022, Additional history exists COLORECTAL SCREENING 03/31/2034 03/31/2024, 03/31/2024, 03/17/2019, Additional history exists Colorectal Cancer Screening 03/31/2034 ZOSTER VACCINE Completed 10/30/2020, 05/28, 09/07/2015 Procedures Procedure Name Priority Date/Time Associated Diagnosis Comments MAMMO 3D JIE SCREEN BILAT W OR WO CAD Routine 08/08/2025 12:07 PM CDT VITAMIN D 25 HYDROXY Routine 07/14/2025 11:50 AM CDT Hypovitaminosis D BASIC METABOLIC PANEL Routine 07/14/2025 11:50 AM CDT Postmenopausal osteoporosis PTH INTACT Routine 07/14/2025 11:50 AM CDT Postmenopausal osteoporosis XR DEXA BONE DENSITY AXIAL 1 OR MORE SITES Routine 11/29/2024 10:09 AM PROJECT CONSTRUCTION ASSISTANT MANAGER Age-related osteoporosis without current pathological fracture POC OCCULT BLOOD, IMMUNO, QUAL, STOOL Routine 07/18/2020 11:30 AM CDT Encounter for screening for malignant neoplasm of rectum from Last 3 Months or Most Recently Relevant to Health Maintenance Results * MAMMO 3D JIE SCREEN BILAT W OR WO CAD (08/08/2025 12:07 PM CDT) Anatomical Region Laterality Modality Breast Bilateral Mammography us Kimberlee Wakefield MD MAMMO ORDERABLES Edited Result - Final * VITAMIN D 25 HYDROXY (07/14/2025 11:50 AM CDT) VITAMIN D, 25 OH, TOTAL 83 30 - 100 ng/mL [facility] Comment: Vitamin D Status 25-OH Vitamin D: Deficiency: <20 ng/mL Insufficiency: 20 - 29 ng/mL Optimal: > or = 30 ng/mL For 25-OH Vitamin D testing on patients on D2-supplementation and patients for whom quantitation of D2 and D3 fractions is required, the [facility] 25-OH VIT D, (D2,D3), LC/MS/MS is recommended: order code 15330 (patients >2yrs). See Note 1 Note 1 For additional information, please refer to http://education.Avvenu/faq/KLG666 (This link is being provided for informational/ educational purposes only.) Test Performed at: [facility] [address] [place] [address] Zack Keating MD Blood 07/14/2025 11:5 0 AM CDT 07/14/2025 11:50 AM CDT us Kita Lloyd MD CHEMISTRY ORDERABLES Final Re sult [facility] [phone] [facility] [address] * PTH INTACT (07/14/2025 11:50 AM CDT) PTH INTACT 74 16 - 77 pg/mL [facility] Comment: Interpretive Guide Intact PTH Calcium ------- Normal Parathyroid Normal Normal Hypoparathyroidism Low or Low Normal Low Hyperparathyroidism Primary Normal or High High Secondary High Normal or Low Tertiary High High Non-Parathyroid Hypercalcemia Low or Low Normal High Test Performed at: [facility] [employer] [employer] [address] [place], [place] [address] [place] [address] Zack Keating MD Blood 07/14/2025 11:5 0 AM CDT 07/14/2025 11:50 AM CDT us Kita Lloyd MD CHEMISTRY ORDERABLES Final Re sult Performing Organization Address [facility] Co de Phone Number [facility] [phone] [facility] [address] [place] [address] * (ABNORMAL) BASIC METABOLIC PANEL (07/14/2025 11:50 AM CDT) GLUCOSE 79 65 - 99 mg/dL [facility] Comment: Fasting reference interval BUN 18 7 - 25 mg/dL [facility] CREATININE 1.09(H) 0.60 - 1.00 mg/dL [facility] GFR 54(L) > OR = 60 mL/min/1.7 3m2 [facility] BUN/CREAT RATIO 17 6 - 22 (calc) [facility] SODIUM 141 135 - 146 mmol/L [facility] POTASSIUM 4.2 3.5 - 5.3 mmol/L [facility] CHLORIDE 107 98 - 110 mmol/L [facility] CO2 26 20 - 32 mmol/L [facility] CALCIUM 9.3 8.6 - 10.4 mg/dL [facility] Comment: Test Performed at: [facility] [address] [place] [address] Zack Keating MD Blood 07/14/2025 11:5 0 AM CDT 07/14/2025 11:50 AM CDT Kita Lloyd MD CHEMISTRY ORDERABLES Final Re sult Performing Organization Address City/[facility]/ZIP Co de Phone Number [facility] [phone] [facility] [address] * XR DEXA BONE DENSITY AXIAL 1 OR MORE SITES (11/29/2024 10:09 AM PROJECT CONSTRUCTION ASSISTANT MANAGER) Anatomical Region Laterality Modality Computed Radiogr aphy 11/29/2024 10:0 9 AM PROJECT CONSTRUCTION ASSISTANT MANAGER Impressions 11/29/2024 1:30 PM PROJECT CONSTRUCTION ASSISTANT MANAGER FINDINGS/IMPRESSION: Osteoporosis with a lowest T score of -3.6, previously -3.5. Fracture risk is high. FRAX: 10 year probability of major osteoporotic fracture is 10.5 %. 10 year probability of hip fracture is 1.8 %. Please refer to the full report available in [facility] under the PACS Images tab. If a faxed copy is needed, please call [phone]. DICTATION LOCATION: [facility] Narrative 11/29/2024 1:30 PM PROJECT CONSTRUCTION ASSISTANT MANAGER EXAMINATION: XR DEXA BONE DENSITY AXIAL 1 OR MORE SITES DATE: 11/29/2024 10:09 AM INDICATION: Height loss, postmenopausal Procedure Note Faizan Lopez MD - 11/29/2024 EXAMINATION: XR DEXA BONE DENSITY AXIAL 1 OR MORE SITES DATE: 11/29/2024 10:09 AM INDICATION: Height loss, postmenopausal FINDINGS/IMPRESSION: Osteoporosis with a lowest T score of -3.6, previously -3.5. Fracture risk is high. FRAX: 10 year probability of major osteoporotic fracture is 10.5 %. 10 year probability of hip fracture is 1.8 %. Please refer to the full report available in [facility] under the PACS Images tab. If a faxed copy is needed, please call [phone]. DICTATION LOCATION: [facility] Richardson Doran MD DIAGNOSTIC IMAGING ORDERABLE S Final Result * POC OCCULT BLOOD, IMMUNO, QUAL, STOOL (07/18/2020 11:30 AM CDT) OCCULT BLOOD, IMMUNOASSAY POC Negative Negative [facility] STAVE LOG CUT OFF SAW OPERATOR T[place] A [address] INTERNAL KIT QC Pass Pass [facility] STAVE LOG CUT OFF SAW OPERATOR T[place] A [address] KIT LOT NUMBER POC [phone] [facility] STAVE LOG CUT OFF SAW OPERATOR T[place] A [address] KIT EXPIRATION DATE POC [phone] [facility] STAVE LOG CUT OFF SAW OPERATOR TOWER A [address] Stool STOOL SPECIMEN / Unknown 07/18/2020 11:30 AM CDT Hafsa Lopez MD POINT OF CARE TESTING Edit ed Result - Final [facility] STAVE LOG CUT OFF SAW OPERATOR ELIGIO Franco [address] [facility]# [id number] [address] [facility] [address] [place] [address] from Last 3 Months or Most Recently Relevant to Health Maintenance Insurance Care Teams Mechanical Pencils Assembler Relationship Specialty Start Date End Date Gutierrez Torres MD PCP - General Emergency Medicine 10/30/16
--- OUTSIDE RECORDS SUMMARY | 2025-09-07 14:59 | XMS_ITS | Encounter Summary ---
Author Organization [facility] Address [address] [place] [address] Care Team Providers Care Dynamometer Tester Name Role Phone Gutierrez Torres MD Primary Care Provider [phone] Encounter Details Date Type Department Care Team (Latest Contact Info) Description 04/17/2008 Outpatient Historical [facility] Qi Perea MD NO ADDRESS ON FILE Symptomatic Menopausal or Female Climacteric States Social History Tobacco Use Types Packs/Day Years Used Date Smoking Tobacco: Never Assessed Comments Unknown Sex and Gender Information Value Date Recorded Sex Assigned at Not on file Legal Sex Female 5:20 AM PROPERTY ASSESSMENT MONITOR Gender Identity Not on file Sexual Orientation Not on file documented as of this encounter Plan of Treatment Upcoming Encounters Date Type Department Care Team (Late st Contact Info) Description 11/21/2025 10:45 AM PROPERTY ASSESSMENT MONITOR Office Visit [facility] SAP BUSINESS ANALYST - Medical [place] [address] [facility] [address] [place] [address] Kimberlee Wakefield MD [address] [place] [address] documented as of this encounter Procedures Procedure Name Priority Date/Time Associated Diagnosis Comments XR DEXA BONE DENSITY AXIAL 1 OR MORE SITES Routine 04/17/2008 11:17 AM CDT documented in this encounter Results * XR DEXA BONE DENSITY AXIAL (04/17/2008 11:17 AM CDT) Anatomical Region Laterality Modality Other 04/17/2008 11:1 7 AM CDT Narrative 04/17/2008 11:54 AM CDT [place] [address] [place], [place] [address] Admit Date: 04/17/2008 MAYTE AMBRIZ Sex: F Admit Prov: QI PEREA Date: 1955 Primary Care Prov: KAMILLA ANGÉLICA CMRN: [id number] Room: [facility] SSN: IMAGING SERVICES Ordering Prov: N/A Accession Number: [id number] Interpretation BONE MINERAL DENSITY (DEXA) HISTORY: 53 year old female with postmenopausal symptoms needing evaluation for osteoporosis. PROCEDURE: Using a centrose dual energy x-ray absorptiometry system, the patient's bone mineral density was measured over the lumbar spine and femurs. Comparison was made to age and sex matched normal values. FINDINGS: Lateral radiograph of the lumbar spine reveals no evidence of fracture. Lumbar Spine ( L1-L4) Bone Mineral Density = 1.002 gm/cm2 Compared to young adult (T-score), difference of -1.5 Standard Deviations. The patient's spine BMD is osteopenic when compared to that of a young adult. The patient's risk for fracture is low. Left Femoral Neck Bone Mineral Density = 0.873 gm/cm2 Compared to young adult (T-score), difference of -1.2 Standard Deviations. The patient's left femoral neck BMD is osteopenic when compared to that of a young adult. The patient's risk for fracture is low. No prior DEXA studies are available for comparison. . Dictated by: ZUHAIR BOWDEN 04/17/2008 11:53 Electronically signed by: ZUHAIR BOWDEN 04/17/2008 11:53 Procedure Note Zuhair Bowden - 04/17/2008 [place] [address] [place], [place] [address] Admit Date: 04/17/2008 MAYTE AMBRIZ Sex: F Admit Prov: QI PEREA Date: 1955 Primary Care Prov: ANGÉLICA KOHLI CMRN: [id number] Room: [facility] SSN: IMAGING SERVICES Ordering Prov: N/A Interpretation BONE MINERAL DENSITY (DEXA) HISTORY: 53 year old female with postmenopausal symptoms needing evaluationfor osteoporosis. PROCEDURE: Using a centrose dual energy x-ray absorptiometry system, the patient's bone mineral density was measured over the lumbar spineand femurs. Comparison was made to age and sex matched normal values. FINDINGS: Lateral radiograph of the lumbar spine reveals no evidence offracture. Lumbar Spine ( L1-L4) Bone Mineral Density = 1.002 gm/cm2 Compared to young adult (T-score), difference of -1.5Standard Deviations. The patient's spine BMD is osteopenic when compared to that of ayoung adult. The patient's risk for fracture is low. Left Femoral Neck Bone Mineral Density = 0.873 gm/cm2 Compared to young adult (T-score), difference of -1.2Standard Deviations. The patient's left femoral neck BMD is osteopenic when compared tothat of a young adult. The patient's risk for fracture is low. No prior DEXA studies are available for comparison. . Dictated by: ZUHAIR BOWDEN 04/17/2008 11:53 Electronically signed by: ZUHAIR BOWDEN 04/17/2008 11:53 Qi Perea MD DIAGNOSTIC IMAGING ORDERABLES Final Result documented in this encounter Visit Diagnoses Diagnosis Symptomatic menopausal or female climacteric states documented in this encounter Care Teams Dynamometer Tester Relationship Specialty Start Date End Date Gutierrez Torres MD PCP - General Emergency Medicine 10/30/16 documented as of this encounter
--- OUTSIDE RECORDS SUMMARY | 2025-09-07 14:59 | XMS_ITS | Patient Health Record ---
Author Organization [facility] Address [address] [address] [place] [address] Support Name Relationship Address Phone Pb Melissa Guarantor Unknown Allergies No Known Allergies Reason For Referral No Information Plan Of Treatment No Information Insurance Providers Payer Name Payer Address Payer Phone Subscriber Number Group Number Insured Name Patient Relationship to Insured Coverage Start Date Coverage End Date [employer] [facility] [address] [address] [place] [id number] Melissa Ambriz Self - patient is the insured
--- OUTSIDE RECORDS SUMMARY | 2025-09-07 14:59 | XMS_ITS | Patient Health Record ---
Author Organization [facility] Address [facility] [facility] [address] [place] [address] Care Team Providers Care Staff Readiness Officer Name Role Phone Brian, Gutierrez Primary Care Provider Taqueria Campos Unavailable [phone] Allergies No Known Allergies Reason For Referral No Information Medications Medication SIG (Take, Route, Frequency, Duration) Notes Start Date End Date Status hydroCHLOROthiazide 12.5 MG Capsule 1 capsule in the morning Orally Once a day Active Pantoprazole Sodium 40 MG Tablet Delayed Release 1 tablet Orally Once a day Active Vitamin D 50 MCG (1999) Tablet 1 tablet Orally Once a day Active Losartan Potassium 50 MG Tablet 1 tablet Orally Once a day Active Folic Acid 1 MG Tablet 1 tablet Orally O nce a day Active Social History Social History Additional Details Category Social Info Options Details Social History 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 Recreational drug use: no Alcohol yes socially Problems Problem Type SNOMED Code ICD Code Onset Dates Problem Status W/U Status Risk Notes Problem Essential hypertension (67201262) Essential (primary) hypertension (I10) Active confirmed Plan Of Treatment No Information Insurance Providers Payer Name Payer Address Payer Phone Subscriber Number Group Number Insured Name Patient Relationship to Insured Coverage Start Date Coverage End Date [employer] MEDICARE PPO [address] [place] [address] [phone] [id number] Melissa Saldana Self - patient is the insured Medical (General) History Medical History History ICD Code Cardiac arrhythmia, unspecified I49.9 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 0 Essential (primary) hypertension I10 Obesity, unspecified E66.9 Gastro-esophageal reflux disease without esophagitis K21.9 Surgical History Surgery Date(Month/Year) carpal tunnel release surgery splenectomy
--- OUTSIDE RECORDS SUMMARY | 2025-09-07 14:59 | XMS_ITS | Encounter Summary ---
Author Organization [facility] Address [address] [place] [address] Care Team Providers Care Manager Of Disaster Recovery Name Role Phone Gutierrez Torres MD Primary Care Provider [phone] Encounter Details Date Type Department Care Team (Late st Contact Info) Description 11/14/2022 Lab Requisition [facility] Care DermPath Lab [address] [place] [address] Sincere Anderson MD [address] [place] [address] Social History Tobacco Use Types Packs/Day Years Used Date Smoking Tobacco: Never Smokeless Tobacco: Never Alcohol Use Standard Drinks/Week Comments Yes 0 (1 standard drink = 0.6 oz pur e alcohol) Comments Unknown Sex and Gender Information Value Date Recorded Sex Assigned at Not on file Legal Sex Female 6:13 AM SALES TECHNICIAN HOME THEATER Gender Identity Not on file Sexual Orientation Not on file documented as of this encounter Plan of Treatment Not on file documented as of this encounter Procedures Procedure Name Priority Date/Time Associated Diagnosis Comments DERMATOPATHOLOGY Routine 11/13/2022 12:0 0 AM SALES TECHNICIAN HOME THEATER documented in this encounter Results * DERMATOPATHOLOGY (11/13/2022 12:00 AM SALES TECHNICIAN HOME THEATER) Case Report Dermatopathology Report Case: [id number] Authorizing Provider: Sincere Anderson MD Collected: 11/13/2022 12:00 AM Ordering Location: [facility] DermPath Lab Received: 11/14/2022 10:25 AM Pathologist: Tran Dalal MD Specimen: Skin, left earlobe 11:28 AM [facility] DERMATOPATHOLOGY LABORATORY Final Diagnosis Specimen A. SKIN, left earlobe: DILATED PORE OF YASMANY (L70.8) PRESENT AT MARGIN 11:28 AM [facility] DERMATOPATHOLOGY LABORATORY at [address] SALES TECHNICIAN HOME THEATER Clinical History Infl. Cyst. Please Check Margins. Path# [id number] 11:28 AM [facility] DERMATOPATHOLOGY LABORATORY Gross Description Specimen A: Received is one formalin filled container labeled with the patient's name and designated left earlobe. The specimen consists of a [id number] piece of skin that is inked and bisected. There is a fragment present measuring [id number]. Jar 0. 11:28 AM [facility] DERMATOPATHOLOGY LABORATORY Microscopic Description Specimen A. SKIN, left earlobe: There is a central, broad epidermal invagination lined by epithelium with a prominent rete pattern. This lesion is present at the margin of the specimen. 11:28 AM [facility] DERMATOPATHOLOGY LABORATORY Disclaimer An external and internal positive and negative controls are appropriate for the histochemical, immunohistochemical and immunofluorescence stain(s) in this case (if any), except where stated explicitly. The performance characteristics of the stain(s) cited in this report were developed and its performance characteristic determined by the Dermatopathology Laboratory at [facility], directed by Dr. Jenny Woods. These tests need not be, and therefore are not, approved by the [place] Food and Drug Administration. The tests are used for clinical purposes. Billing Codes Specimen Charges Stain Charges 79336 1 11:28 AM [facility] DERMATOPATHOLOGY LABORATORY Embedded Images 11:28 AM [facility] DERMATOPATHOLOGY LABORATORY Pathology/Cytolog y TISSUE SPECIMEN FROM SKIN / Unknown 11/13/2022 11/14/2022 10:25 AM [facility] us Sincere Anderson MD LAB - PATHOLOGY/CYTOLOGY ORDER WES Final Result DERMATOPATHOLOGY LABORATORY Susan - Department of Derm[facility] [address] [place], [place] [address] [phone] documented in this encounter Visit Diagnoses Not on filedocumented in this encounter Care Teams Manager Of Disaster Recovery Relationship Specialty Start Date End Date Gutierrez Torres MD [address] [place] [address] PCP - General 06/12/20 documented as of this encounter
--- OUTSIDE RECORDS SUMMARY | 2025-09-07 14:59 | XMS_ITS | Encounter Summary ---
Author Organization [facility] Address [address] [place] [address] Care Team Providers Care Radio Antenna Installer Name Role Phone Gutierrez Torres MD Primary Care Provider +1- [phone] Encounter Details Date Type Department Care Team (Latest Contact Info) Description 02/10/2008 Outpatient Historical [facility] [address] [place] [address] Luis Angel Bravo MD [address] [facility] [address] [place] [address] Carpal Tunnel Syndrome (Primary Dx) Social History Tobacco Use Types Packs/Day Years Used Date Smoking Tobacco: Never Assessed Comments Unknown Sex and Gender Information Value Date Recorded Sex Assigned at Not on file Legal Sex Female 5:20 AM SURGICAL ASST Gender Identity Not on file Sexual Orientation Not on file documented as of this encounter Plan of Treatment Upcoming Encounters Date Type Department Care Team (Late st Contact Info) Description 11/21/2025 10:45 AM SURGICAL ASST Office Visit [facility] DOCTOR OF DENTAL MEDICINE - Medical [place] [address] [facility] [address] [place] [address] Kimberlee Wakefield MD [address] [place] [address] documented as of this encounter Visit Diagnoses Diagnosis Carpal tunnel syndrome- Primary documented in this encounter Care Teams Radio Antenna Installer Relationship Specialty Start Date End Date Gutierrez Torres MD PCP - General Emergency Medicine 10/30/16 documented as of this encounter
--- OUTSIDE RECORDS SUMMARY | 2025-09-07 14:59 | XMS_ITS | Clinical Summary ---
Author Organization [facility] Address [address] [place] [address] Care Team Providers Care Fractionation Plant Supervisor Name Role Phone Unavailable Primary Care Provider Unavailabl e Social History Tobacco Use Types Packs/Day Years Used Date Smoking Tobacco: Never Assessed Comments Unknown Sex and Gender Information Value Date Recorded Sex Assigned at Not on file Legal Sex Female 1:19 PM HEATING AND REFRIGERATION INSPECTOR Gender Identity Not on file Sexual Orientation Not on file Plan of Treatment Health Maintenance Due Date Last Done Comments Hepatitis C Virus (HCV) Screening 1955 Cologuard 1999 Colonoscopy 1999 Colorectal Cancer Screening 1999 Immunochemical Fecal Occult Blood 1999 Pneumococcal Immunization (5 0+ years) (2 of 2 - PCV20 or PCV21) 09/07/2016 09/07/2015 Influenza Immunization (#1) 2025 091 , 09/07/2015, 11/05/2013 SARS-COV-2 Immunization ( season) 2025 06/12/2021, 12/26/2020, 11/28/2020 Respiratory Syncytial Virus (RSV) Immunization (Adult) (1 - 1-dose 75+ series) 2029 Pneumococcal Immunization Combined Discontinued 09/07/2015 DTaP/Tdap/Td Immunization Discontinued 02/22/2016 TdaP Immunization Completed 02/22/2016 Zoster Immunization Completed 10/30/2020, 06/25/2020, 09/07/2015 Hepatitis B Immunization Aged Out No longer eligible based on patient's age to complete this topic Human Papillomavirus (HPV) Immunization Aged Out No longer eligible based on patient's age to complete this topic Meningococcal Immunization (ACWY) Aged Out No longer eligible based on patient's age to complete this topic Rotavirus Immunization Aged Out No lo nger eligible based on patient's age to complete this topic Insurance [employer] on file
--- OUTSIDE RECORDS SUMMARY | 2025-09-07 14:59 | XMS_ITS | Encounter Summary ---
Author Organization Address [address] [place] [address] Care Team Providers Care Associate Merchandise Planner Name Role Phone Gutierrez Torres MD Primary Care Provider +1- [phone] Encounter Details Date Type Department Care Team (Late st Contact Info) Description 01/27/2001 Outpatient Historical [facility] Luis Angel Bravo MD [address] [place] [address] [address] [place] [address] Unspecified disorder of autonomic nervous system (Primary Dx) Social History Tobacco Use Types Packs/Day Years Used Date Smoking Tobacco: Never Assessed Comments Unknown Sex and Gender Information Value Date Recorded Sex Assigned at Not on file Legal Sex Female 5:20 AM FRUIT CHECKER Gender Identity Not on file Sexual Orientation Not on file documented as of this encounter Plan of Treatment Upcoming Encounters Date Type Department Care Team (Late st Contact Info) Description 11/21/2025 10:45 AM FRUIT CHECKER Office Visit [facility] ASSOCIATE DENTIST - Medical [place] [address] [facility] [address] [place] [address] Kimberlee Wakefield MD [address] [place] [address] documented as of this encounter Visit Diagnoses Diagnosis Unspecified disorder of autonomic nervous system- Primary documented in this encounter Care Teams Associate Merchandise Planner Relationship Specialty Start Date End Date Gutierrez Torres MD PCP - General Emergency Medicine 10/30/16 documented as of this encounter
--- NOTE | 2025-09-07 15:00 | ECG_ITS ---
Test Date: 2025-09-07 15:26:21 Measurements Intervals [place] Rate: 75 P: 62 SD: 153 QRS: 52 QRSD: 82 T: 57 QT: 382 QTc: 427 Interpretive Statements SINUS RHYTHM NORMAL ELECTROCARDIOGRAM No previous ECG available for comparison Electronically Signed On 09-08-2025 12:54:54 NEUROPSYCHIATRIST by Óscar Killian M.D.
[2025-09-07 15:08] LABS: Hematocrit 39.4 % (37.0-47.0); Hemoglobin 14.0 g/dL (12.0-15.0); Immature Granulocyte Percent A 0.6 % (0-0.5); Lymphocytes Absolute Auto 2.64 K/mm3 (0.9-3.2); Mean Corpuscular HGB Conc 35.5 g/dl (32-36); Mean Corpuscular Hemoglobin 33.9 pg (26-34); Mean Corpuscular Volume 95.4 fl (80-100); Nucleated Red Blood Cells Absolute Auto 0.000 K/mm3 (0.0-0.012); Nucleated Red Blood Cells Perc 0.0 % (0.0-0.2); Platelet Count Result 307 k/mm3 (150-375); Red Blood Count 4.13 M/mm3 (4.2-5.4); White Blood Count 9.0 K/mm3 (4.5-10.0)
[2025-09-07 15:18] LABS: Alanine Aminotransferase 20 U/L (6-35); Albumin Level 4.6 g/dL (3.5-5.1); Alkaline Phosphatase 80 U/L (38-126); Anion Gap 7 mmol/L (4-12); Aspartate Amino Transferase 33 U/L (14-36); Bilirubin,Total 0.9 mg/dL (0.2-1.3); Blood Urea Nitrogen 20 mg/dL (7-17); Calcium 9.3 mg/dL (8.4-10.2); Carbon Dioxide 26 mmol/L (22-30); Chloride 105 mmol/L (98-107); Estimated CRCL calculation 43 ml/min; Estimated Glomerular Filt Rate 54; Glucose 142 mg/dL (65-110); Potassium 3.6 mmol/L (3.4-5.0); Sodium 138 mmol/L (137-145); Total Protein 7.7 g/dL (6.3-8.2)
[2025-09-07 15:27] LABS: INR 1.0; Prothrombin Time 13.3 Seconds (11.1-14.7)
[2025-09-07 15:28] LABS: Partial Thromboplastin Time 29.6 Seconds (22.3-36.8)
[2025-09-07 15:30] LABS: Troponin I < 0.012 ng/mL (0.000-0.034)
--- OUTSIDE RECORDS SUMMARY | 2025-09-07 15:53 | XMS_ITS | Encounter Summary ---
Author Organization [facility] Address [address] [place] [address] Care Team Providers Care Mental Hygienist Name Role Phone Gutierrez Torres MD Primary Care Provider +1- [phone] Encounter Details Date Type Department Care Team (Late st Contact Info) Description 01/27/2001 Outpatient Historical [facility] DE[facility] Luis Angel Bravo MD [address] [place] [address] [address] [place] [address] Unspecified disorder of autonomic nervous system (Primary Dx) Social History Tobacco Use Types Packs/Day Years Used Date Smoking Tobacco: Never Assessed Comments Unknown Sex and Gender Information Value Date Recorded Sex Assigned at Not on file Legal Sex Female 5:20 AM PATIENT CARE TECHNICIAN INSTRUCTOR Gender Identity Not on file Sexual Orientation Not on file documented as of this encounter Plan of Treatment Upcoming Encounters Date Type Department Care Team (Late st Contact Info) Description 11/21/2025 10:45 AM PATIENT CARE TECHNICIAN INSTRUCTOR Office Visit [facility] YOUTH ASSOCIATE - Medical [place] [address] [address] [place] [address] Kimberlee Wakefield MD [address] [place] [address] documented as of this encounter Visit Diagnoses Diagnosis Unspecified disorder of autonomic nervous system- Primary documented in this encounter Care Teams Mental Hygienist Relationship Specialty Start Date End Date Gutierrez Torres MD PCP - General Emergency Medicine 10/30/16 documented as of this encounter
--- OUTSIDE RECORDS SUMMARY | 2025-09-07 15:53 | XMS_ITS | Encounter Summary ---
Author Organization [facility] Address [address] [place] [address] Care Team Providers Care Flash Drier Operator Name Role Phone Gutierrez Torres MD Primary Care Provider +1- [phone] Encounter Details Date Type Department Care Team (Late st Contact Info) Description 01/04/2001 Outpatient Historical [facility] Luis Angel Bravo MD [address] [place] [address] [address] [place] [address] Unspecified ptosis of eyelid (Primary Dx) Social History Tobacco Use Types Packs/Day Years Used Date Smoking Tobacco: Never Assessed Comments Unknown Sex and Gender Information Value Date Recorded Sex Assigned at Not on file Legal Sex Female 5:20 AM DEPARTMENT DIRECTOR Gender Identity Not on file Sexual Orientation Not on file documented as of this encounter Plan of Treatment Upcoming Encounters Date Type Department Care Team (Late st Contact Info) Description 11/21/2025 10:45 AM DEPARTMENT DIRECTOR Office Visit [facility] COIL WINDING SUPERVISOR - Medical [place] [address] [facility] [address] [place] [address] Kimberlee Wakefield MD [address] [place] [address] documented as of this encounter Visit Diagnoses Diagnosis Unspecified ptosis of eyelid- Primary documented in this encounter Care Teams Flash Drier Operator Relationship Specialty Start Date End Date Gutierrez Torres MD PCP - General Emergency Medicine 10/30/16 documented as of this encounter
--- OUTSIDE RECORDS SUMMARY | 2025-09-07 15:53 | XMS_ITS | Encounter Summary ---
Author Organization [facility] Address [address] [place] [address] Care Team Providers Care Test Preparation Tutor Name Role Phone Gutierrez Torres MD Primary Care Provider [phone] Encounter Details Date Type Department Care Team (Late st Contact Info) Description 11/14/2022 Lab Requisition [facility] Care DermPath Lab [address] [facility] [place] [address] Sincere Anderson MD [address] [place] [address] Social History Tobacco Use Types Packs/Day Years Used Date Smoking Tobacco: Never Smokeless Tobacco: Never Alcohol Use Standard Drinks/Week Comments Yes 0 (1 standard drink = 0.6 oz pur e alcohol) Comments Unknown Sex and Gender Information Value Date Recorded Sex Assigned at Not on file Legal Sex Female 6:13 AM COLLEGE ADVISOR Gender Identity Not on file Sexual Orientation Not on file documented as of this encounter Plan of Treatment Not on file documented as of this encounter Procedures Procedure Name Priority Date/Time Associated Diagnosis Comments DERMATOPATHOLOGY Routine 11/13/2022 12:0 0 AM COLLEGE ADVISOR documented in this encounter Results * DERMATOPATHOLOGY (11/13/2022 12:00 AM COLLEGE ADVISOR) Case Report Dermatopathology Report Case: [id number] Authorizing Provider: Sincere Anderson MD Collected: 11/13/2022 12:00 AM Ordering Location: [facility] DermPath Lab Received: 11/14/2022 10:25 AM Pathologist: Tran Dalal MD Specimen: Skin, left earlobe 11:28 AM [facility] DERMATOPATHOLOGY LABORATORY Final Diagnosis Specimen A. SKIN, left earlobe: DILATED PORE OF YASMANY (L70.8) PRESENT AT MARGIN 11:28 AM [facility] DERMATOPATHOLOGY LABORATORY at 1128 COLLEGE ADVISOR Clinical History Infl. Cyst. Please Check Margins. Path# [id number] 11:28 AM [facility] DERMATOPATHOLOGY LABORATORY Gross Description Specimen A: Received is one formalin filled container labeled with the patient's name and designated left earlobe. The specimen consists of a [id number] piece of skin that is inked and bisected. There is a fragment present measuring 4y3s1nl. Jar 0. 11:28 AM [facility] DERMATOPATHOLOGY LABORATORY Microscopic Description Specimen A. SKIN, left earlobe: There is a central, broad epidermal invagination lined by epithelium with a prominent rete pattern. This lesion is present at the margin of the specimen. 11:28 AM [facility] DERMATOPATHOLOGY LABORATORY Disclaimer An external and internal positive and negative controls are appropriate for the histochemical, immunohistochemical and immunofluorescence stain(s) in this case (if any), except where stated explicitly. The performance characteristics of the stain(s) cited in this report were developed and its performance characteristic determined by the Dermatopathology Laboratory at [facility], directed by Dr. Jenny Woods. These tests need not be, and therefore are not, approved by the [place] Food and Drug Administration. The tests are used for clinical purposes. Billing Codes Specimen Charges Stain Charges 53490 1 11:28 AM [facility] DERMATOPATHOLOGY LABORATORY Embedded Images 11:28 AM [facility] DERMATOPATHOLOGY LABORATORY Pathology/Cytolog y TISSUE SPECIMEN FROM SKIN / Unknown 11/13/2022 11/14/2022 10:25 AM [facility] us Sincere Anderson MD LAB - PATHOLOGY/CYTOLOGY ORDER WES Final Result DERMATOPATHOLOGY LABORATORY Susan - Department of Dermatology [facility] [address] [facility] [place], [place] [address] [phone] documented in this encounter Visit Diagnoses Not on filedocumented in this encounter Care Teams Test Preparation Tutor Relationship Specialty Start Date End Date Gutierrez Torres MD [address] [place] [address] PCP - General 06/12/20 documented as of this encounter
--- OUTSIDE RECORDS SUMMARY | 2025-09-07 15:53 | XMS_ITS | Encounter Summary ---
Author Organization [facility] Address [address] [place] [address] Care Team Providers Care Distributing Clerk Name Role Phone Gutierrez Torres MD Primary Care Provider +1- [phone] Encounter Details Date Type Department Care Team (Latest Contact Info) Description 04/17/2008 Outpatient Historical [facility] Qi ePrea MD NO ADDRESS ON FILE Symptomatic Menopausal or Female Climacteric States Social History Tobacco Use Types Packs/Day Years Used Date Smoking Tobacco: Never Assessed Comments Unknown Sex and Gender Information Value Date Recorded Sex Assigned at Not on file Legal Sex Female 5:20 AM REFINERY PIPELINE OPERATOR Gender Identity Not on file Sexual Orientation Not on file documented as of this encounter Plan of Treatment Upcoming Encounters Date Type Department Care Team (Late st Contact Info) Description 11/21/2025 10:45 AM REFINERY PIPELINE OPERATOR Office Visit [facility] WASHING MACHINE ASSEMBLER - Medical [place] [address] [facility] [address] [place] [address] Kimberlee Wakefield MD [address] [place] [address] documented as of this encounter Procedures Procedure Name Priority Date/Time Associated Diagnosis Comments XR DEXA BONE DENSITY AXIAL 1 OR MORE SITES Routine 04/17/2008 11:17 AM CDT documented in this encounter Results * XR DEXA BONE DENSITY AXIAL (04/17/2008 11:17 AM CDT) Anatomical Region Laterality Modality Other 04/17/2008 11:1 7 AM CDT Narrative 04/17/2008 11:54 AM CDT [place] [address] [place], [place] [address] Admit Date: 04/17/2008 MAYTE AMBRIZ Sex: F Admit Prov: QI PEREA Date: 1955 Primary Care Prov: KAMILLA ANGÉLICA CMRN: [id number] Room: [facility] SSN: IMAGING SERVICES Ordering Prov: N/A Accession Number: [id number] Interpretation BONE MINERAL DENSITY (DEXA) HISTORY: 53 year old female with postmenopausal symptoms needing evaluation for osteoporosis. PROCEDURE: Using a [employer] dual energy x-ray absorptiometry system, the patient's [...] 11:53 Procedure Note Zuhair Bowden - 04/17/2008 [place] [address] [place], [place] [address] Admit Date: 04/17/2008 MAYTE AMBRIZ Sex: F Admit Prov: QI PEREA Date: 1955 Primary Care Prov: ANGÉLICA KOHLI CMRN: [id number] Room: [facility] SSN: IMAGING SERVICES Ordering Prov: N/A Interpretation BONE MINERAL DENSITY (DEXA) HISTORY: 53 year old female with postmenopausal symptoms needing evaluationfor osteoporosis. PROCEDURE: Using a [employer] dual energy x-ray absorptiometry system, the patient's [...] states documented in this encounter Care Teams Distributing Clerk Relationship Specialty Start Date End Date Gutierrez Torres MD PCP - General Emergency Medicine 10/30/16 documented as of this encounter
--- OUTSIDE RECORDS SUMMARY | 2025-09-07 15:53 | XMS_ITS | Encounter Summary ---
Author Organization [facility] Address [address] [place] [address] Care Team Providers Care Dietitian Consultant Name Role Phone Gutierrez Torres MD Primary Care Provider +1- [phone] Encounter Details Date Type Department Care Team (Latest Contact Info) Description 12/22/2000 Outpatient Historical [facility] Luis Angel More MD [address] [place] [address] [address] [place] [address] Unspecified disorder of autonomic nervous system (Primary Dx) Social History Tobacco Use Types Packs/Day Years Used Date Smoking Tobacco: Never Assessed Comments Unknown Sex and Gender Information Value Date Recorded Sex Assigned at Not on file Legal Sex Female 5:20 AM ACCOUNT SERVICE REPRESENTATIVE Gender Identity Not on file Sexual Orientation Not on file documented as of this encounter Plan of Treatment Upcoming Encounters Date Type Department Care Team (Late st Contact Info) Description 11/21/2025 10:45 AM ACCOUNT SERVICE REPRESENTATIVE Office Visit [facility] HAT FORMING MACHINE FEEDER - Medical [place] [address] [facility] [address] [place] [address] Kimberlee Wakefield MD [address] [place] [address] documented as of this encounter Visit Diagnoses Diagnosis Unspecified disorder of autonomic nervous system- Primary documented in this encounter Care Teams Dietitian Consultant Relationship Specialty Start Date End Date Gutierrez Torres MD PCP - General Emergency Medicine 10/30/16 documented as of this encounter
--- OUTSIDE RECORDS SUMMARY | 2025-09-07 15:53 | XMS_ITS | Clinical Summary ---
Author Organization [email or web address] Address [address] [place] [address] Care Team Providers Care Slag Dumper Name Role Phone Gutierrez Torres MD Primary Care Provider +1- [phone] Allergies No known active allergies Medications pantoprazole [...] 5,000 Units by mouth daily. Active zoledronic vrdj-pzfoxyeL-n ater (RECLAST) 5 mg/100 mL Piggyback Inject [...] STL ABSTRACTION Provider, Abstract 08/09/2025 Orders Only [facility] PAVING INSPECTOR - Medical [place] [address] [facility] [address] [place] [address] Kimberlee Wakefield MD 07/18/2025 External Device Data STL ABSTRACTION Provider, Abstract 07/16/2025 Results Follow-Up [facility] Endocrinology [address] [facility] [address] [place] [address] Kita Lloyd MD PTH INTACT, BASIC METABOLIC PANEL, VITAMIN D 25 HYDROXY 07/14/2025 11:15 AM CDT Office Visit [facility] Endocrinology [address] [facility] [address] [place] [address] Kita Lloyd MD Postmenopausal osteoporosis (Primary Dx); [...] on file Legal Sex Female 5:20 AM SEVERITY OF ILLNESS COORDINATOR Gender Identity Not on file Sexual Orientation [...] st Contact Info) Description 11/21/2025 10:45 AM SEVERITY OF ILLNESS COORDINATOR Office Visit [facility] PAVING INSPECTOR - Medical [place] [address] [facility] [address] [place] [address] Kimberlee Wakefield MD [address] [facility] [address] [place] [address] Health Maintenance Due Date Last Done Comments [...] OR MORE SITES Routine 11/29/2024 10:09 AM SEVERITY OF ILLNESS COORDINATOR Age-related osteoporosis without current pathological fracture POC [...] [place], TOTAL 83 30 - 100 ng/mL [employer] [facility] Comment: Vitamin D Status 25-OH Vitamin D: Deficiency: <20 ng/mL Insufficiency: 20 - 29 ng/mL Optimal: > or = 30 ng/mL For 25-OH Vitamin D testing on patients on D2-supplementation and patients for whom quantitation of D2 and D3 fractions is required, the [facility]() 25-OH VIT D, (D2,D3), LC/MS/MS is recommended: order code 61406 (patients >2yrs). See Note 1 Note 1 For additional information, please refer to http://education.StyleShare/faq/EWS640 (This link is being provided for informational/ educational purposes only.) Test Performed at: [facility] [address] [place] [address] Zack Keating MD Blood 07/14/2025 11:5 0 AM CDT 07/14/2025 11:50 AM CDT us Kita Lloyd MD CHEMISTRY ORDERABLES Final Re sult [facility] [address] [phone] [facility] [address] * PTH INTACT (07/14/2025 11:50 AM CDT) PTH INTACT 74 16 - 77 pg/mL [employer] [facility] Comment: Interpretive Guide Intact PTH Calcium ------- Normal Parathyroid Normal Normal Hypoparathyroidism Low or Low Normal Low Hyperparathyroidism Primary Normal or High High Secondary High Normal or Low Tertiary High High Non-Parathyroid Hypercalcemia Low or Low Normal High Test Performed at: [facility] [address] [place], [place] [address] [place] [address] Zack Keating MD Blood 07/14/2025 11:5 0 AM CDT 07/14/2025 11:50 AM CDT us Kita Lloyd MD CHEMISTRY ORDERABLES Final Re sult Performing Organization Address [facility] Co de Phone Number [facility] [address] [phone] [facility] [address] [place] [address] * (ABNORMAL) BASIC METABOLIC PANEL (07/14/2025 11:50 [...] [facility] Comment: Test Performed at: [facility] [address] [place] [address] Zack Keating MD Blood 07/14/2025 11:5 0 AM CDT 07/14/2025 11:50 AM CDT Kita Lloyd MD CHEMISTRY ORDERABLES Final Re sult Performing Organization Address City/[facility]/ZIP Co de Phone Number [facility] [address] [address] [phone] [facility] [address] * XR DEXA BONE DENSITY AXIAL 1 OR MORE SITES (11/29/2024 10:09 AM SEVERITY OF ILLNESS COORDINATOR) Anatomical Region Laterality Modality Computed Radiogr aphy 11/29/2024 10:0 9 AM SEVERITY OF ILLNESS COORDINATOR Impressions 11/29/2024 1:30 PM SEVERITY OF ILLNESS COORDINATOR FINDINGS/IMPRESSION: Osteoporosis with a lowest T score of -3.6, previously -3.5. Fracture risk is high. FRAX: 10 year probability of major osteoporotic fracture is 10.5 %. 10 year probability of hip fracture is 1.8 %. Please refer to the full report available in [facility] under the PACS Images tab. If a faxed copy is needed, please call [phone]. DICTATION LOCATION: [facility] Narrative 11/29/2024 1:30 PM SEVERITY OF ILLNESS COORDINATOR EXAMINATION: XR DEXA BONE DENSITY AXIAL 1 [...] refer to the full report available in [facility] under the PACS Images tab. If a faxed copy is needed, please call [phone]. DICTATION LOCATION: [facility] Richardson Doran MD DIAGNOSTIC IMAGING ORDERABLE S Final Result * POC OCCULT BLOOD, IMMUNO, QUAL, STOOL (07/18/2020 11:30 AM CDT) OCCULT BLOOD, IMMUNOASSAY POC Negative Negative [facility] PAVING INSPECTOR [address] INTERNAL KIT QC Pass Pass [facility] PAVING INSPECTOR TOWER A [address] KIT [address] NUMBER POC [phone] [facility] PAVING INSPECTOR [address] [address] KIT EXPIRATION DATE POC [phone] [facility] PAVING INSPECTOR [address] [address] Stool STOOL SPECIMEN / Unknown 07/18/2020 11:30 AM CDT Hafsa Lopez MD POINT OF CARE TESTING Edit ed Result - Final [facility] PAVING INSPECTOR ELIGIO Franco [address] [facility]# [id number] [address] [facility] [address] [place] [address] from Last 3 Months or Most Recently Relevant to Health Maintenance Insurance Care Teams Slag Dumper Relationship Specialty Start Date End Date Gutierrez Torres MD PCP - General Emergency Medicine 10/30/16
--- OUTSIDE RECORDS SUMMARY | 2025-09-07 15:53 | XMS_ITS | Clinical Summary ---
Author Organization [facility] Address [address] [place] [id number] Care Team Providers Care Plain Goods Hemmer Name Role Phone Unavailable Primary Care Provider Unavailabl e Social History Tobacco Use Types Packs/Day Years Used Date Smoking Tobacco: Never Assessed Comments Unknown Sex and Gender Information Value Date Recorded Sex Assigned at Not on file Legal Sex Female 1:19 PM NET MOBILE DEVELOPER Gender Identity Not on file Sexual Orientation [...]
--- OUTSIDE RECORDS SUMMARY | 2025-09-07 15:53 | XMS_ITS | Encounter Summary ---
Author Organization [facility] Address [address] [place] [address] Care Team Providers Care Talent Acquisition Lead Name Role Phone Gutierrez Torres MD Primary Care Provider [phone] Encounter Details Date Type Department Care Team (Latest Contact Info) Description 02/10/2008 Outpatient Historical [facility] [address] [place] [address] Luis Angel Bravo MD [address] [place] [address] Carpal Tunnel Syndrome (Primary Dx) Social History Tobacco Use Types Packs/Day Years Used Date Smoking Tobacco: Never Assessed Comments Unknown Sex and Gender Information Value Date Recorded Sex Assigned at Not on file Legal Sex Female 5:20 AM RADIOPHARMACIST Gender Identity Not on file Sexual Orientation Not on file documented as of this encounter Plan of Treatment Upcoming Encounters Date Type Department Care Team (Late st Contact Info) Description 11/21/2025 10:45 AM RADIOPHARMACIST Office Visit [facility] MINT MACHINE OPERATOR - Medical [place] [address] [place] [address] Kimberlee Wakefield MD [address] [place] [address] documented as of this encounter Visit Diagnoses Diagnosis Carpal tunnel syndrome- Primary documented in this encounter Care Teams Talent Acquisition Lead Relationship Specialty Start Date End Date Gutierrez Torres MD PCP - General Emergency Medicine 10/30/16 documented as of this encounter
--- OUTSIDE RECORDS SUMMARY | 2025-09-07 15:53 | XMS_ITS | Clinical Summary ---
Author Organization [facility] Address [address] [place] [address] Care Team Providers Care Telecommunications Officer Name Role Phone Gutierrez Torres MD Primary Care Provider [phone] Allergies No known active allergies Medications calcium [...] 10/10/2013 Surgical History Surgery Date Site/Laterality Comments RI ARTHROSCOPY KNEE W/MENISC US RPR MEDIAL/LATERAL Left Knee Arthroscopy With Medial Meniscus Repair - (Added by TW Conv) RI SPLENECTOMY TOTAL SEPARAT E PROCEDURE Splenectomy - [...] on file Legal Sex Female 8:29 AM PERSONNEL QUALITY ASSURANCE AUDITOR Gender Identity Female 05/31/2021 10:39 AM CDT [...] 74.8 kg (165 lb) 10/06/2024 10:56 AM PERSONNEL QUALITY ASSURANCE AUDITOR Height 160 cm (5' 3) 10/06/2024 10:56 AM PERSONNEL QUALITY ASSURANCE AUDITOR Body Mass Index 29.23 10/06/2024 10:56 AM PERSONNEL QUALITY ASSURANCE AUDITOR Plan of Treatment Health Maintenance Due Date [...] Helms MD - 03/31/2024 3:31 PM CDT [facility] Patient Name: Melissa Ambriz Procedure Date: 03/31/2024 3:31 PM Date of : 1955 Admit Type: Outpatient Age: 68 Gender: Female Note Status: Finalized Attending MD: Alvarez Helms M.D. Procedure Date: 03/31/2024 Procedure: Colonoscopy Indications: High risk colon cancer surveillance: Personalhistory of colonic polyps Providers: Alvarez Helms M.D., Maki Henderson, SCAFFOLD WORKER (Anesthesia Staff), Frances Greco RN, Cristina, Sap Project Manager Referring MD: Gutierrez Torres M.D. Medicines: Monitored [...] bowel preparation was evaluated using the BBPS (Clemson Bowel Preparation Scale)with scores of: Right Colon [...] 3 weeks. Procedure Code(s): --- Professional --- 08863, Colonoscopy, flexible; with biopsy, singleor multiple Diagnosis Code(s): --- Professional --- Z86.010, Personal history of colonic polyps D12.8, Benign neoplasm of rectum K57.30, Diverticulosis of large intestine without perforation or abscess without bleeding CPT copyright 2020 [employer]. All rights reserved. The codes documented in this report are preliminary and upon school guidance counselor reviewmay be revised to meet current compliance [...] [place] [address] A[employer] MEDICARE [id number] [place] [address] Advance Directives For more information, please contact: [phone] * Full Code (Latest Code Status on [...] 7:38 AM 05/05/2019 5:55 PM Care Teams Telecommunications Officer Relationship Specialty Start Date End Date Gutierrez Torres MD PCP - General 10/06/17
--- OUTSIDE RECORDS SUMMARY | 2025-09-07 15:53 | XMS_ITS | Clinical Summary ---
Author Organization [facility] Address [address] [place] [address] Care Team Providers Care Sanitation Engineer Name Role Phone Gutierrez Torres MD Primary Care Provider [phone] [facility],non-owned Affiliates and Associated Physician Practices is amultiple site organization consisting of ambulatory clinics and hospital sitesin [place] and [place]. This disclosure is being madepursuant to the Care Everywhere program and may not contain all information available regarding this patient. Last updated 18.[facility] [employer] Allergies No known active allergies Medications * [...] fluticasone propionate (Flonase) 50 MCG/ACT nasal spray [place] 2 (two) sprays into each nostril once daily 48 g 4 024 Active azelastine (Astelin) 0.1 % nasal spray [place] 1 (one) spray into each nostril 2 [...] 10/10/2013 Immunizations Immunization Administration Dates Next Due Aldera BIVALENT 12Y+ 30mcg/0.3ML 3,08/03/2022 [employer] primary Monovalent 12+ yr 0.3ml 06/2022 INFLUENZA [...] on file Legal Sex Female 6:13 AM WELT INSOLE CHANNELER Gender Identity Not on file Sexual Orientation Not on file Last Filed Vital Signs Vital Sign Reading Time Taken Comments Blood Pressure 128/86 12/19/2024 8:37 AM WELT INSOLE CHANNELER Pulse 80 12/19/2024 8:37 AM WELT INSOLE CHANNELER Temperature 36.7 C (98.1 F) 11/07/2021 4:07 PM WELT INSOLE CHANNELER Respiratory Rate - - Oxygen Saturation 96% 12/19/2024 8:37 AM WELT INSOLE CHANNELER Inhaled Oxygen Concentration - - Weight 75.6 kg (166 lb 9.6 oz) 12/19/2024 8:37 AM WELT INSOLE CHANNELER Height 162.6 cm (5' 4.02) 12/19/2024 8:37 AM CS T Body Mass Index 28.58 12/19/2024 8:37 AM WELT INSOLE CHANNELER Plan of Treatment Health Maintenance Due Date [...] Insurance AETNA AETNA MEDICARE ADV Care Teams Sanitation Engineer Relationship Specialty Start Date End Date Gutierrez Torres MD [address] [place] [address] [facility] - General 06/12/20
--- OUTSIDE RECORDS SUMMARY | 2025-09-07 15:53 | XMS_ITS | Encounter Summary ---
Author Organization [facility] Address [address] [place] [address] Care Team Providers Care Guest Services Lead Name Role Phone Gutierrez Torres MD Primary Care Provider [phone] Encounter Details Date Type Department Care Team (Late st Contact Info) Description 07/16/2025 Results Follow-Up [facility] [address] [place] [address] Kita Lloyd MD [address] [place] [address] PTH INTACT, BASIC METABOLIC PANEL, VITAMIN D 25 HYDROXY Social History Tobacco Use Types Packs/Day Years Used Date Smoking Tobacco: Never Smokeless Tobacco: Never Alcohol Use Standard Drinks/Week Comments Yes 0 (1 standard drink = 0.6 oz pur e alcohol) rarely Comments No Sex and Gender Information Value Date Recorded Sex Assigned at Not on file Legal Sex Female 5:20 AM CORPORATE SECURITIES RESEARCH ANALYST Gender Identity Not on file Sexual Orientation Not on file documented as of this encounter Plan of Treatment Upcoming Encounters Date Type Department Care Team (Late st Contact Info) Description 11/21/2025 10:45 AM CORPORATE SECURITIES RESEARCH ANALYST Office Visit [facility] FIELD COORDINATOR - Medical [place] [address] [place] [address] Kimebrlee Wakefield MD [address] [place] [address] documented as of this encounter Visit Diagnoses Not on filedocumented in this encounter Care Teams Guest Services Lead Relationship Specialty Start Date End Date Gutierrez Torres MD PCP - General Emergency Medicine 10/30/16 documented as of this encounter
[2025-09-07] MEDS: SODIUM CHLORIDE 0.9% IV 1,000 ML 999 ML IV CONT (16:27)
[2025-09-07 16:34] LABS: Add Urine Microscopic? YES; Appearance Urine Clear (Clear); Glucose Urine UA Negative (Negative); Leukocyte Esterase Ur Trace LEU/UL (Negative); Nitrate Urine Negative (Negative); Non Pathogenic Casts 0-2; Specific Grav Ur 1.020 (1.001-1.035)
--- NOTE | 2025-09-07 17:23 | ED.NEUROSD ---
HPI - Neuro Symptoms/Deficit General Chief Complaint: Suspected CVA Stated Complaint: confusion Time Seen by Provider: 09/07/25 15:11 History of Present Illness HPI Narrative: Patient is a 70-year-old female who presents ER with sudden onset confusion beginning at 2:00 p.m.. Patient had been with her daughter since 10/24 or 1:00 p.m. he reports he is acting normal. At 2:00 p.m. the had been talking to the patient and patient began not remembering conversations she had had the morning with him. She also did not recall that they were eating with her grandchildren at the time and was telling her that they needed to make food for the kids. His prompted him to bring her to the ER for evaluation for possible CVA. Of note patient did have an EGD 2 days ago for a balloon dilation of the esophagus that she gets routinely. After that she had been acting normally and had right golf yesterday and today drove to [place] to have her hair done and then drove home. Related Data Home Medications ?Medication ?Instructions ?Recorded ?Confirmed ?Last Taken ?Type calcium carbonate (Antacid 750 mg PO Q2-3H PRN Acid Reflux 06/10/20 03/05/23 06/10/20 08:00 History (calcium carbonate)) denosumab 60 mg/mL subcutaneous 60 mg subcut [id number] 06/10/20 03/05/23 12/19/19 09:00 History syringe (Prolia) melatonin 10 mg tablet 20 mg PO HS 06/10/20 03/05/23 06/09/20 22:00 History chlorthalidone 25 mg tablet 25 mg PO DAILY 03/05/23 03/05/23 Unknown History cholecalciferol (vitamin D3) 125 125 mcg PO DAILY 03/05/23 03/05/23 Unknown History mcg (5,000 unit) capsule losartan 50 mg tablet 50 mg PO HS 03/05/23 03/05/23 Unknown History mirabegron 25 mg tablet,extended 25 mg PO DAILY 03/05/23 03/05/23 Unknown History release 24 hr (Myrbetriq) Allergies Allergy/AdvReac Type Severity Reaction Status Date / Time No Known Allergies Allergy Verified 09/07/25 15:26 Review of Systems Review of Systems: ROS unobtainable: Yes unobtainable due to mental status PMFSH Past Medical History Medical History Acute blood loss anemia Esophageal ring Esophageal stricture Gastric ulcer GERD with stricture History of esophageal dilatation Hypertension Melena Osteoporosis 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 She is a full code. 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 Her is a durable power assistant county attorney for healthcare. She may be drinks 1 drink a month. She does not use any marijuana tobacco or illicit drugs. She has 3 children. Smoking status: Never smoker Alcohol intake: current Alcohol use details: ONE DRINK PER MONTH Substance use: never Living arrangements: with family Gender identity (if verbalized by the patient): Female Spiritual care concerns: No Exam Narrative: GENERAL: Well-appearing, well-nourished, and in no acute distress. HEAD: Normocephalic, atraumatic. EYES: PERRL and EOMI. ENT: Mucous membranes moist. CHEST: Clear to auscultation. No respiratory distress. HEART: Regular rate and rhythm. Normal peripheral pulses. ABDOMEN: Soft, nontender, nondistended. EXTREMITIES: Normal range of motion. No edema. SKIN: Warm, dry, no rash. NEURO: No focal deficits. Alert and oriented to self, place, date. Has no memory of her activities from this morning or yesterday.. PSYCH: Normal mood and affect. Course Course Emergency Course: Patient has continued confusion. When walking back from the bathroom she continues to ask the nurse what her name is and has the same reaction each time she gets the room about the color of the bed sheets. She has no recollection of what she did today or yesterday. This seems in schaefer attic of transient global amnesia. I have discussed this with her as well as the patient. 1816: Accepted to [facility] by Dr. Odonnell. WIll arrange transport when a bed is available. Pt stable. updated. Vital Signs Vital signs: Vital Signs Temperature 98 F 09/07/25 14:50 Pulse Rate 93 09/07/25 14:50 Respiratory Rate 16 09/07/25 14:50 Blood Pressure 172/80 H 09/07/25 14:50 Pulse Oximetry 99 09/07/25 14:50 Oxygen Delivery Room Air 09/07/25 14:50 Temperature 98 F 09/07/25 14:50 Pulse Rate 78 09/07/25 17:55 Respiratory Rate 13 09/07/25 17:55 Blood Pressure 152/106 H 09/07/25 17:55 Pulse Oximetry 98 09/07/25 17:55 Oxygen Delivery Room Air 09/07/25 15:24 MDM - Neuro Symptoms/Deficit Lab Data 09/07/25 15:02 09/07/25 15:02 Labs: Lab Results 09/07/25 09/07/25 Range/Units 15:02 16:17 WBC 9.0 (4.5-10.0) K/mm3 RBC 4.13 L (4.2-5.4) M/mm3 Hgb 14.0 (12.0-15.0) g/dL Hct 39.4 (37.0-47.0) % MCV 95.4 (80-100) fl MCH 33.9 (26-34) pg MCHC 35.5 (32-36) g/dl RDW 11.5 (11.5-14.5) % Plt Count 307 (150-375) k/mm3 MPV 11.1 H (7.4-10.4) fl Immature Gran % (Auto) 0.6 H (0-0.5) % Neut % (Auto) 59.0 (45.5-73.1) % Lymph % (Auto) 29.4 (18.3-44.2) % [place] % (Auto) 7.6 (2.6-8.5) % Eos % (Auto) 2.2 (0-4.4) % Baso % (Auto) 1.2 (0.2-1.2) % Lymph # (Auto) 2.64 (0.9-3.2) K/mm3 [place] # (Auto) 0.7 H (0.1-0.6) K/mm3 Eos # (Auto) 0.2 (0-0.3) K/mm3 Baso # (Auto) 0.1 (0.0-0.1) K/mm3 Abs Immat Gran (auto) 0.05 H (0.00-0.031) K/mm3 Absolute Neuts (auto) 5.3 (1.3-6.7) K/mm3 Absolute Nucleated RBC 0.000 (0.0-0.012) K/mm3 Nucleated RBC % 0.0 (0.0-0.2) % PT 13.3 (11.1-14.7) Seconds INR 1.0 APTT 29.6 (22.3-36.8) Seconds Sodium 138 (137-145) mmol/L Potassium 3.6 (3.4-5.0) mmol/L Chloride 105 (98-107) mmol/L Carbon Dioxide 26 (22-30) mmol/L Anion Gap 7 (4-12) mmol/L BUN 20 H (7-17) mg/dL Creatinine 1.01 H (0.7-1.0) mg/dL Estim Creat Clear Calc 43 ml/min Estimated GFR 54 L (59 - ) Glucose 142 H (65-110) mg/dL Calcium 9.3 (8.4-10.2) mg/dL Total Bilirubin 0.9 (0.2-1.3) mg/dL AST 33 (14-36) U/L ALT 20 (6-35) U/L Alkaline Phosphatase 80 (38-126) U/L Troponin I < 0.012 (0.000-0.034) ng/mL Total Protein 7.7 (6.3-8.2) g/dL Albumin 4.6 (3.5-5.1) g/dL Urine Color Yellow (Yellow) Urine Appearance Clear (Clear) Urine pH 6.0 (5.0-9.0) Ur Specific [place] 1.020 (1.001-1.035) Urine Protein Negative (Negative) mg/dL Urine Glucose (UA) Negative (Negative) mg/dL Urine Ketones Negative (Negative) mg/dL Ur Blood (Man) Negative (Negative) Urine Nitrate Negative (Negative) Urine Bilirubin Negative (Negative) Urine Urobilinogen 0.2 (<2.0) mg/dL Leukocyte Esterase Rfl Trace H (Negative) XIOMARA/UL Urine RBC 0-2 (0-2) /hpf Urine WBC 0-5 (0-3) /hpf Ur Squamous Epith Cells None seen (Few) /hpf Urine Bacteria None seen /hpf Urine Casts 0-2 Critical Care Time Critical Care Time Critical Care Time: Yes Total Critical Care Time: 35 Discharge Plan Discharge Clinical Impression: Transient global amnesia Patient Disposition: Acute Care Hospital Condition: Stable Patient Language: Persian Prescriptions: No Action calcium carbonate [Antacid (calcium carbonate)] 320 mg calcium (750 mg) Tablet,Chewable 750 mg PO Q2-3H PRN (Reason: Acid Reflux) Prolia 60 mg/mL Syringe 60 mg SUBCUT [id number] melatonin 10 mg Tablet 20 mg PO HS pantoprazole 40 mg Tablet,Delayed Release (Dr/Ec) 40 mg PO Q12HR Qty: 60 2RF Patient Comments: TAKES QPM losartan 50 mg tablet 50 mg PO HS chlorthalidone 25 mg tablet 25 mg PO DAILY cholecalciferol (vitamin D3) 125 mcg (5,000 unit) Capsule 125 mcg PO DAILY Myrbetriq 25 mg Tablet Extended Release 24 Hr 25 mg PO DAILY hydrocodone-acetaminophen 5-325 mg tablet 1 tablet PO Q8H PRN (Reason: pain) Qty: 14 0RF Follow-up/Referrals: NON-NURSING STAFF,ADMISSIONS [Primary Care Provider, Nursing] Quality Stroke Scale Stroke Scale 1: Stroke scale date:: 09/07/25 Stroke scale time:: 15:11 1a Level of consciousness: alert-0 1b Level of consciousness questions: answers both correctly-0 1c Level of consciousness commands: obeys both correctly-0 2 Best gaze: normal-0 3 Visual: no visual loss-0 4 Facial palsy: normal-0 5a Motor: left arm: no drift-0 5b Motor: right arm: no drift-0 6a Motor: left leg: no drift-0 6b Motor: right leg: no drift-0 7 Limb ataxia: absent-0 8 Sensory: normal-0 9 Best language: no aphasia-0 10 Dysarthria: normal-0 11 Extinction and inattention: no abnormality-0 Level:: 0
--- NOTE | 2025-09-07 17:51 | PC.NURSE ---
Put pt on [facility] at this time, Dr. Armstrong ok'd. No further orders at this time.
== END 2025-09-07 22:59 | disposition short-term general hospital (02) ==
PROVIDERS: Emergency Provider Emergency Medicine
DX: G45.4 Transient global amnesia (principal); K21.9 Gastro-esophageal reflux disease without esophagitis; I10 Essential (primary) hypertension; M81.0 Age-related osteoporosis without current pathological fracture; Z90.81 Acquired absence of spleen; Z79.620 Long term (current) use of immunosuppressive biologic; Z79.899 Other long term (current) drug therapy
CPT/HCPCS: 36415; 70450; 70496; 70498; 71045; 80053; 81001; 82948; 84484; 85025; 85610; 85730; 93005; 96360; 99285; J7030; Q9967